=== PATIENT | female | born 1980 | race African-American/Black ===

== ENCOUNTER 2019-03-29 18:54 | Emergency (ER) | payer OTHER ==
[2019-03-29 19:21] VITALS: BP 127/79; PULSE 117; TEMP 98.5; BMI 20.7
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
[2019-03-29] MEDS ORDERED: DIPHTH,PERTUSS(ACELL),TET 0.5 ML DISP.SYRIN IM ONE (20:09)
[2019-03-29] MEDS ORDERED: DIPHTH,PERTUSS(ACELL),TET VAC 0.5 ML VIAL IM ONE (20:31)
== END 2019-03-29 20:34 | disposition home or self-care (01) ==
LOC: JERFT 18:54
PROC: 3E0234Z Introduction of Serum, Toxoid and Vaccine into Muscle, Percutaneous Approach (ICD-10-PCS; principal; 2019-03-29)
PROC: 0HQ1XZZ Repair Face Skin, External Approach (ICD-10-PCS; 2019-03-29)
DX: S01.81XA Laceration without foreign body of other part of head, initial encounter (principal); W20.8XXA Other cause of strike by thrown, projected or falling object, initial encounter; Y93.89 Activity, other specified; Y92.89 Other specified places as the place of occurrence of the external cause; Y99.8 Other external cause status
CPT/HCPCS: 12013; 90471; 99281-25

== ENCOUNTER 2020-06-14 11:48 | Emergency (ER) | payer OTHER ==
[2020-06-14 12:01] VITALS: BP 113/82; PULSE 88; TEMP 98.2; BMI 19.6
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
[2020-06-14] MEDS ORDERED: IBUPROFEN 400 MG TABLET (FP) PO ONE ×2 (13:08→13:09)
== END 2020-06-14 13:19 | disposition home or self-care (01) ==
LOC: JERFT 11:48
PROC: 2W3DX1Z Immobilization of Left Lower Arm using Splint (ICD-10-PCS; principal; 2020-06-14)
DX: S62.323A Displaced fracture of shaft of third metacarpal bone, left hand, initial encounter for closed fracture (principal)
CPT/HCPCS: 73130-TC-LT-FY; 99284-25

== ENCOUNTER 2020-07-23 12:14 | Inpatient (IN) | payer OTHER ==
--- OUTSIDE RECORDS SUMMARY | 2020-07-23 12:19 | XMS ---
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 32.0-37. <content [facility] corpuscular 0 styleCode="[place] hemoglobin ">Mean Corpus. Medical concentration Hgb Center [Mass/volume] by Concentration Automated count (MCHC) </content>33.2 G/DL<content styleCode="Ital ics"> (32.0-37.0 G/DL)</content> Erythrocyte mean 26.0-34. <content [facility] corpuscular 0 styleCode="[place] hemoglobin ">Mean Medical [Entitic mass] Corposcular Center by Automated Hemoglobin count </content>32.8 PG<content styleCode="Ital ics"> (26.0-34.0 PG)</content> Platelets 130-400 <content [facility] [#/volume] in styleCode="[place] Blood by ">Platelet Medical Automated count Count Center </content>294 KCUMM<content styleCode="Ital ics"> (130-400 KCUMM)</content > Erythrocyte 11.5-14. <content [facility] distribution 5 styleCode="[place] width [Ratio] by ">Red Cell Medical Automated count Distribution Center Width </content>12.4 %<content styleCode="Ital ics"> (11.5-14.5 %)</content> Erythrocyte mean 80.0-100 <content [facility] corpuscular .0 styleCode="[place] volume [Entitic ">Mean Medical volume] by Corpuscular Center Automated count Volume </content>98.5 FL<content styleCode="Ital ics"> (80.0-100.0 FL)</content> UNK 0 <content [facility] styleCode="[place] ">Nucleated Red Medical Blood Cell Center </content>0.0 /100<content styleCode="Ital ics"> (0 /100)</content> UNK 0.0 <content [facility] styleCode="[place] ">Nucleated Red Medical Blood Cell Center Count </content>0.00 KCUMM<content styleCode="Ital ics"> (0.0 KCUMM)</content > ID Date Data Source GFR(Creatinine).[id number] 06/14/2019 03:50:00 PM EDT [facility] 0-0400 Name Value Range Interpretation Code Description Data Pretty rce(s) Supporting Document(s ) UNK > 60 <content [facility] styleCode="[facility]"> Medical Cent er EGFR </content>75 GFR<content styleCode="Italic s"> (> 60 GFR)</content> ID Date Data Source [id number] 06/14/2019 03:50:00 PM EDT [facility] Name Value Range Interpretation Description Data Sup porting Code Source(s) Document(s ) Sodium 137-145 <content [facility] [Moles/volume] styleCode="[place] in Serum or d">Sodium Medical Plasma </content>143 Center MEQ/L<content styleCode="Triny lics"> (137-145 MEQ/L)</conten t> Chloride 98-107 <content [facility] [Moles/volume] styleCode="[place] in Serum or d">Chloride Medical Plasma </content>104 Center MEQ/L<content styleCode="Triny lics"> (98-107 MEQ/L)</conten t> Potassium 3.5-5.3 Below low normal <content [facility] [Moles/volume] styleCode="[place] in Serum or d">Potassium Medical Plasma </content>3.4 Center MEQ/L L<content styleCode="Triny lics"> (3.5-5.3 MEQ/L)</conten t> Carbon 22-30 <content [facility] dioxide, total styleCode="[place] [Moles/volume] d">Carbon Medical in Serum or Dioxide Center Plasma </content>26 MEQ/L<content styleCode="Triny lics"> (22-30 MEQ/L)</conten t> UNK 7-17 <content [facility] styleCode="[place] d">BUN Medical </content>11 Center MG/DL<content styleCode="Triny lics"> (7-17 MG/DL)</conten t> Calcium 8.4-10.2 <content [facility] [Mass/volume] styleCode="[place] in Serum or d">Calcium Medical Plasma </content>9.4 Center MG/DL<content styleCode="Triny lics"> (8.4-10.2 MG/DL)</conten t> Glucose 74-106 Above high normal <content [facility] [Mass/volume] styleCode="[place] in Serum or d">Glucose Medical Plasma </content>117 Center MG/DL H<content styleCode="Triny lics"> (74-106 MG/DL)</conten t> Creatinine 0.5-1.3 <content [facility] [Mass/volume] styleCode="[place] in Serum or d">Creatinine Medical Plasma </content>0.9 Center MG/DL<content styleCode="Triny lics"> (0.5-1.3 MG/DL)</conten t> UNK > 60 <content [facility] styleCode="[place] d">EGFR Medical </content>75 Center GFR<content styleCode="Triny lics"> (> 60 GFR)</content> Procedure Social History Code Duration Value Status Description Data Source(s ) Smoking 04/05/2020 01:57:00 Daily Smoker completed Daily Smoker S [facility] EDT Center Smoking 04/05/2020 01:49:00 Daily Smoker completed Daily Smoker S [facility] EDT Center Smoking 04/05/2020 12:51:00 Daily Smoker completed Daily Smoker S [facility] EDT Center Smoking 07/12/2019 09:54:00 Daily Smoker completed Daily Smoker S [facility] EDT Center Smoking 07/12/2019 09:23:00 Daily Smoker completed Daily Smoker S [facility] EDT Center Smoking 07/12/2019 09:18:00 Daily Smoker completed Daily Smoker S [facility] EDT Center Smoking 07/11/2019 07:40:00 Daily Smoker completed Daily Smoker S [facility] EDT Center Smoking 06/28/2019 11:07:00 Daily Smoker completed Daily Smoker S [facility] EDT Center Smoking 06/28/2019 11:00:00 Daily Smoker completed Daily Smoker S [facility] EDT Center Smoking 06/14/2019 03:52:00 Daily Smoker completed Daily Smoker S [facility] EDT Center Smoking 06/14/2019 03:26:00 Daily Smoker completed Daily Smoker S [facility] EDT Center Vital Signs ID Date Data Source UNK Name Value Range Interpretation Code Description Data Source(s) Body temperature 36.480258 36.374042 [facility] Respiratory rate 17 /min 17 /min [facility] Oxygen saturation 98 % 98 % [facility] by Pulse oximetry Heart rate 74 /min 74 /min [facility] Diastolic blood 81 mm[Hg] 81 mm[Hg] [facility] Systolic blood 153 mm[Hg] 153 mm[Hg] [facility] pressure [facility] Body weight 61.098711 kg 61.199663 kg [facility] Body temperature 36.237677 36.443808 [facility] Respiratory rate 18 /min 18 /min [facility] Oxygen saturation 97 % 97 % [facility] by Pulse oximetry Heart rate 87 /min 87 /min [facility] Body height 175.949156 175.687705 cm [facility] Diastolic blood 83 mm[Hg] 83 mm[Hg] [facility] pressure Medical Center Systolic blood 144 mm[Hg] 144 mm[Hg] [facility] Body mass index 20.0 kg/m2 20.0 kg/m2 [facility] (BMI) [Ratio] [facility] Body weight 61.263437 kg 61.449906 kg [facility] Measured [facility] Body temperature 36.865148 36.215012 [facility] Respiratory rate 17 /min 17 /min [facility] Oxygen saturation 98 % 98 % [facility] Arterial blood Medical Center by Pulse oximetry Heart rate 77 /min 77 /min [facility] Body height 172.375735 172.061173 cm [facility] Diastolic blood 56 mm[Hg] 56 mm[Hg] [facility] Systolic blood 111 mm[Hg] 111 mm[Hg] [facility] Body mass index 20.6 kg/m2 20.6 kg/m2 [facility] (BMI) [Ratio] [facility] Body temperature 37.963359 37.457853 [facility] Respiratory rate 18 /min 18 /min [facility] Oxygen saturation 98 % 98 % [facility] Arterial blood Medical Center by Pulse oximetry Heart rate 78 /min 78 /min [facility] Diastolic blood 78 mm[Hg] 78 mm[Hg] [facility] pressure Medical Center Systolic blood 132 mm[Hg] 132 mm[Hg] [facility] Medical Center Body weight 65.151593 kg 65.883466 kg [facility] Measured Medical Center Body temperature 36.911077 36.307964 [facility] Respiratory rate 17 /min 17 /min [facility] Oxygen saturation 96 % 96 % [facility] Arterial blood Medical Center by Pulse oximetry Heart rate 97 /min 97 /min [facility] Diastolic blood 74 mm[Hg] 74 mm[Hg] [facility] Systolic blood 123 mm[Hg] 123 mm[Hg] [facility] Medical Center Body weight 62.088172 kg 62.336434 kg [facility] Body temperature 36.360599 36.142109 [facility] Respiratory rate 17 /min 17 /min [facility] Oxygen saturation 97 % 97 % [facility] Marielena garcia in Arterial blood Medical Center by Pulse oximetry Heart rate 95 /min 95 /min [facility] Body height 172.457831 172.448894 cm [facility] cm Medical Center Diastolic blood 82 mm[Hg] 82 mm[Hg] [facility] pressure Medical Center Systolic blood 124 mm[Hg] 124 mm[Hg] [facility] pressure Medical Center Body mass index 20.9 kg/m2 20.9 kg/m2 [facility] (BMI) [Ratio] [facility]
--- NOTE | 2020-07-23 16:27 | BHS.RME ---
Substance Use & Tx History - Substance Use History Alcohol Substance amount: 1to 2 pint of vodka Frequency of use: Daily Substance route: Oral Date of Last Use: 07/23/20 Marijuana/Hashish Substance amount: 2 pulls Frequency of use: Once a month Substance route: Smoking Date of Last Use: 07/22/20 - Last Treatment Date of last treatment: never been in detox before Physical/Psych/Mental Status - Behavior Eye Contact: Normal - Cooperativeness Cooperativeness: Cooperative - Thinking Thought Processes: Logical Thought content: Future oriented - Physical Health Problems Is patient presently having any pain?: No Does patient presently have any injuries (include location): No Does patient currently have a fever: No Is patient : No CIWA Nausea/Vomitin Muscle Tremors: 3 Anxiety: 2 Agitation: 3 Paroxysmal Sweats: No Perspiration Orientation: 0-Oriented Tacttile Disturbances: 1-Very Mild Itch/Numbness Auditory Disturbances: 0-None Visual Disturbances: 0-None Headache: 2-Mild CIWA-Ar Total Score: 13
--- NOTE | 2020-07-23 16:37 | HP ---
CIWA Score Nausea/Vomitin Muscle Tremors: 3 Anxiety: 2 Agitation: 3 Paroxysmal Sweats: No Perspiration Orientation: 0-Oriented Tacttile Disturbances: 1-Very Mild Itch/Numbness Auditory Disturbances: 0-None Visual Disturbances: 0-None Headache: 2-Mild CIWA-Ar Total Score: 13 - Admission Criteria OASAS Guidelines: Admission for Medically Managed Detox: Requires at least one of the followin. CIWA greater than 12 2. Seizures within the past 24 hours 3. Delirium tremens within the past 24 hours 4. Hallucinations within the past 24 hours 5. Acute intervention needed for co occurring medical disorder 6. Acute intervention needed for co occurring psychiatric disorder 7. Severe withdrawal that cannot be handled at a lower level of care (continued vomiting, continued diarrhea, abnormal vital signs) requiring intravenous medication and/or fluids 8. Admitting History and Physical - Admission Chief Complaint: i need help to stop drinking alcohol History of Present Illness: this 40 years old female with alcohol dependence seeking help,never been inn detox before History Source: Patient Limitations to Obtaining History: No Limitations - Past Medical History ...LMP: 06/02/20 ...: No - Smoking History Smoking history: Current every day smoker Have you smoked in the past 12 months: Yes Aproximately how many cigarettes per day: 4 - Alcohol/Substance Use Hx Alcohol Use: Yes Date of Last Use: 07/23/20 - Social History Usual Living Arrangement: Yes: With Parent Do you think of yourself as: Straight/Heterosexual ADL: Support Services Occupation: unemployed History of Recent Travel: No 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,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,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 Admission ROS S - HPI Chief Complaint: i need help to stop drinking alcohol Allergies/Adverse Reactions: Allergies Allergy/AdvReac Type Severity Reaction Status Date / Time No Known Allergies Allergy Verified 07/24/20 00:06 History of Present Illness: this 40 years old female with alcohol dependence,seeking detox,never been in detox before 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,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 history of fx left 3rd metacarpal bone treated at [facility] with splint 2 weeks ago,was removed by the orthopedist never have sobriety history of frequency on urination plan to out patient program after detox Exam Limitations: No Limitations - Ebola screening Have you traveled outside of the country in the last 21 days: No Have you been sick,other than usual withdrawal symptoms: No Do you have a fever: No - Review of Systems Constitutional: Loss of Appetite, Malaise, Night Sweats, Changes in sleep, Weakness EENT: reports: Nose Congestion Respiratory: reports: No Symptoms reported Cardiac: reports: No Symptoms Reported GI: reports: Nausea, Poor Appetite, Abdominal cramping : reports: Dysuria Musculoskeletal: reports: Back Pain, Muscle Pain Integumentary: reports: Dryness Neuro: reports: Tremors Endocrine: reports: No Symptoms Reported Hematology: reports: No Symptoms Reported Psychiatric: reports: No Sypmtoms Reported, Judgement Intact, Mood/Affect Appropiate, Orientated x3, Anxious Other Systems: Reviewed and Negative Patient History - Patient Medical History Hx Anemia: No Hx Asthma: No Hx Chronic Obstructive Pulmonary Disease (COPD): No Hx Cancer: No Hx Cardiac Disorders: No Hx Congestive Heart Failure: No Hx Hypertension: No Hx Hypercholesterolemia: No Hx Pacemaker: No HX Cerebrovascular Accident: No Hx Seizures: No Hx Dementia: No Hx Diabetes: No Hx Gastrointestinal Disorders: No Hx Liver Disease: No Hx Genitourinary Disorders: No Hx Sexually Transmitted Disorders: No Hx Renal Disease (ESRD): No Hx Thyroid Disease: No Hx Human Immunodeficiency Virus (HIV): No (11/02 negative) Hx Hepatitis C: No Hx Depression: No Hx Suicide Attempt: No Hx Bipolar Disorder: No Hx Schizophrenia: No Other Medical History: no suicidal,no homicidal,fx of third metacarpal treated at [facility] 2 wks - Patient Surgical History Past Surgical History: No - PPD History Previous Implant?: Yes Documented Results: Negative w/o proof Implanted On Prior R Admission?: No PPD to be Administered?: Yes - Reproductive History Patient is a Female of Child Bearing Age (11 -55 yrs old): Yes Last Menstrual Period: 06/02/20 Patient : No - Smoking Cessation Smoking history: Current every day smoker Have you smoked in the past 12 months: Yes Aproximately how many cigarettes per day: 4 Cigars Per Day: 0 Hx Chewing Tobacco Use: No Initiated information on smoking cessation: Yes 'Breaking Loose' booklet given: 07/23/20 - Substance & Tx. History Hx Alcohol Use: Yes Hx Substance Use: Yes Substance Use Type: Alcohol, Marijuana Hx Substance Use Treatment: No - Substances abused Alcohol Other (specify): 1 to 2 pints of vodka Substance route: Oral Frequency: Daily Amount used: 1 to 2 pintsof vodka Age of first use: 10 Date of last use: 07/23/20 Marijuana/Hashish Substance route: Smoking Frequency: 1-3 times last 30 days Amount used: 2 puffs Age of first use: 18 Date of last use: 07/22/20 Admission Physical Exam [facility] - Vital Signs Vital Signs: bp 117/89 p82 r18 t97.6 lázaro 0.195 pulse ox 98 - Physical General Appearance: Yes: Moderate Distress, Tremorous, Irritable, Sweating, Anxious HEENTM: Yes: Normal ENT Inspection, GRADY, Pharynx Normal Respiratory: Yes: Within Normal Limits, Lungs Clear, Normal Breath Sounds Neck: Yes: Within Normal Limits, Supple, Trachea in good position Breast: Yes: Breast Exam Deferred Cardiology: Yes: Within Normal Limits, Regular Rhythm, Regular Rate, S1, S2 Abdominal: Yes: Within Normal Limits, Normal Bowel Sounds, Non Tender, Flat, Soft Genitourinary: Yes: Within Normal Limits Back: Yes: Within Normal Limits Musculoskeletal: Yes: Back pain, Muscle Pain Extremities: Yes: Within Normal Limits, Normal Range of Motion, Tremors 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 NML intact, Alert, Motor Strength 5/5 Integumentary: Yes: Dry Lymphatic: Yes: Within Normal Limits - Diagnostic (1) Alcohol dependence with uncomplicated withdrawal Current Visit: Yes Status: Acute (2) Alcohol dependence with uncomplicated intoxication Current Visit: Yes Status: Acute (3) Syncope Current Visit: Yes Status: Acute (4) Nicotine dependence Current Visit: Yes Status: Acute (5) Fracture of metacarpal of left hand, closed Current Visit: No Status: Acute Qualifiers: Encounter type: initial encounter Metacarpal bone: third Metacarpal location: shaft Fracture alignment: displaced Qualified Code(s): S62.323A - Displaced fracture of shaft of third metacarpal bone, left hand, initial encounter for closed fracture Cleared for Admission [facility] - Detox or Rehab [facility] Level of Care: Medically Managed Detox Regimen/Protocol: Librium Inpatient Rehab Admission - Rehab Decision to Admit Inpatient rehab admission?: No
[2020-07-23 16:42] VITALS: BMI 19.1
--- OUTSIDE RECORDS SUMMARY | 2020-07-23 16:56 | XMS ---
:1980 Author Organization [facility] Care Team Providers Name Role Phone [...] is protected by Article 27-F of the [facility] Public Health law. If you continue you may haveaccess to information: Regarding HIV / AIDS; Provided by facilities licensed or operated by the [facility] Office of Mental Health; or Provided by the [facility] Office for People With Developmental Disabilities. If such information is present, then the following [facility] mandated warning applies: This information has [...] law may result in a fine or long term sentence or both. A general authorization for the release of medical or other information is NOT sufficient authorization for further disclosure. Encounters Encounter Providers Location Date Indications Data Source(s ) Emergency Attender: JULIA ED H 04/05/2020 [place] STAFF 12:47:00 PM EDT Medical C enter PHYSICIANAttender: - 04/05/2020 STAFF ED STAFF 08:39:00 PM EDT PHYSICIANAdmitter: JULIA ED STAFF PHYSICIAN Patient discharged. Emergency H 07/12/2019 08:57:00 AM EDT - [address] [place] [address] 12:26:00 PM EDT Patient discharged. Emergency H 07/11/2019 08:37:00 PM EDT - [address] [place] [address] 10:01:00 PM EDT Patient discharged. Emergency H 06/28/2019 10:38:00 PM EDT - [address] [place] [address] 12:53:00 AM EDT Patient discharged. Emergency H 06/14/2019 03:24:00 PM EDT - [address] [place] [address] 06:24:00 PM EDT Patient discharged. Immunizations Vaccine Date Status Description Data Source(s) Note that this vaccine 06/28/2019 completed [facility] name has changed. See 11:55:00 PM EDT Ce nter also Td (adult). It is not adsorbed. Insurance Providers Payer name Policy type Policy ID Covered Covered libertarian's Policy P josse / Coverage libertarian ID relationship to [facility] type [facility] [employer] [id number] SP [id number] P MEDICAID [id number] SP [id number] SELF PAY SP INSURANCE [employer] [id number] SP [id number] Q HMO ALETHA O [id number] [employer] Problems, Conditions, and Diagnoses Code Display [...] ical carried out due to SEEN BY [facility] EDT Center patient leaving [place] prior to [...] EDT Center Results ID Date Data Source Urinalysis.[id number] 04/05/2020 01:50:00 PM EDT [facility] saritha [facility] 0 Name Value Range Interpretation [...] by Test d">Urine Medical strip Specific Center [place] </content>>= 1.030 H<content styleCode="Triny lics"> (1.015-1.025 )</content> [...] Hill d">Urine pH Medical </content>6.0 Center <content styleCode="Rtiny lics"> (4.5-8.0 )</content> Urobilinogen 0.2-1.0 <content Saint [Units/volume] styleCode="Rossana Alejandre in Urine by d">Urine Medical [...] Data Source Liver 04/05/2020 01:50:00 PM EDT [facility] Profile.[id number] Name Value Range Interpretation Description Data Sup [...] (0.2-1.3 MG/DL)</content> UNK 0.0-0.3 <content Saint styleCode="Bold"> [facility] Bilirubin, Direct Medical </content>< 0.2 Center MG/DL<content styleCode="Italic s"> (0.0-0.3 MG/DL)</content> Albumin 3.5-5.0 <content Saint [Mass/volume] in styleCode="Bold"> Ab hs Serum or Plasma Albumin Medical </content>4.3 Center G/DL<content styleCode="Italic s"> (3.5-5.0 G/DL)</content> ID Date Data Source HematologyRou.[id number] 04/05/2020 01:50:00 PM EDT Emmanuel nt [facility] 0400 Name Value Range Interpretation Description Data Sup porting Code Source(s) Document(s ) Hemoglobin 12.3-16. Below low normal <content Saint [Mass/volume] in 0 styleCode="Bold [facility] Blood ">Hemoglobin Medical </content>10.9 Center G/DL L<content [...] low normal <content Saint [Volume 0 styleCode="Bold Hlil Fraction] of ">Hematocrit Medical Blood by </content>31.4 [...] (NONE SEEN )</content> ID Date Data Source GFR(Creatinine).[id number] 04/05/2020 01:50:00 PM EDT [facility] 0-0400 Name Value Range Interpretation Code Description Data Pretty rce(s) Supporting Document(s ) UNK > 60 <content [facility] styleCode="Bold"> Medical Cent er EGFR </content>100 GFR<content styleCode="Italic s"> (> 60 GFR)</content> ID Date Data Source Coagulation 04/05/2020 01:50:00 PM [facility] Center Rout.[id number] EDT Name Value Range Interpretation Description Data [...] cs"> (25.1-36.5 SEC)</content> ID Date Data Source CHMROUTINECCDA.[id number] 04/05/2020 01:50:00 PM EDT [facility] -0400 Name Value Range Interpretation Description Data [...] not available)<br/ > ID Date Data Source [facility].[id number] 04/05/2020 01:50:00 PM EDT [facility] Name Value Range Interpretation Description Data Sup porting Code Source(s) Document(s ) Sodium 137-145 <content Saint [Moles/volume] in styleCode="Bold"> [facility] Serum or Plasma Sodium Medical </content>137 Center MEQ/L<content styleCode="Italic s"> (137-145 MEQ/L)</content> Carbon dioxide, 22-30 <content Saint total styleCode="Bold"> [facility] [Moles/volume] in Carbon Dioxide Medical Serum or Plasma </content>26 Center MEQ/L<content styleCode="Italic s"> (22-30 MEQ/L)</content> Chloride 98-107 <content Saint [Moles/volume] in styleCode="Bold"> [facility] Serum or Plasma Chloride Medical </content>100 Center MEQ/L<content styleCode="Italic s"> (98-107 MEQ/L)</content> Potassium 3.5-5.3 Below low <content Saint [Moles/volume] in normal styleCode="Bold"> [facility] Serum or Plasma Potassium Medical </content>3.4 Center [...] s"> (3.5-5.0 G/DL)</content> ID Date Data Source Urinalysis.[id number] 06/14/2019 03:50:00 PM EDT [facility] 0 Name Value Range Interpretation Description [...] by Test d">Urine Medical strip Specific Center [place] </content>1.02 0 <content styleCode="Triny lics"> (1.015-1.025 )</content> [...] lics"> (0-3 HPF)</content> ID Date Data Source HematologyRou.[id number] 06/14/2019 03:50:00 PM EDT [facility] 0400 Name Value Range Interpretation Description [...] (0.0 KCUMM)</content > ID Date Data Source GFR(Creatinine).[id number] 06/14/2019 03:50:00 PM EDT [facility] 0-0400 Name Value Range Interpretation Code Description Data Pretty rce(s) Supporting Document(s ) UNK > 60 <content [facility] styleCode="Bold"> Medical Cent er EGFR </content>75 GFR<content styleCode="Italic s"> (> 60 GFR)</content> ID Date Data Source [id number] 06/14/2019 03:50:00 PM EDT [facility] Name Value Range Interpretation Description [...] 01:57:00 Daily Smoker completed Daily Smoker S [facility] EDT Center Smoking 04/05/2020 01:49:00 Daily Smoker completed Daily Smoker S [facility] EDT Center Smoking 04/05/2020 12:51:00 Daily Smoker completed Daily Smoker S [facility] EDT Center Smoking 07/12/2019 09:54:00 Daily Smoker completed Daily Smoker S [facility] EDT Center Smoking 07/12/2019 09:23:00 Daily Smoker completed Daily Smoker S [facility] EDT Center Smoking 07/12/2019 09:18:00 Daily Smoker completed Daily Smoker S [facility] EDT Center Smoking 07/11/2019 07:40:00 Daily Smoker completed Daily Smoker S [facility] EDT Center Smoking 06/28/2019 11:07:00 Daily Smoker completed Daily Smoker S [facility] EDT Center Smoking 06/28/2019 11:00:00 Daily Smoker completed Daily Smoker S [facility] EDT Center Smoking 06/14/2019 03:52:00 Daily Smoker completed Daily Smoker S [facility] EDT Center Smoking 06/14/2019 03:26:00 Daily Smoker completed Daily Smoker S [facility] EDT Center Vital Signs ID Date Data Source UNK Name Value Range Interpretation Code Description Data Source(s) Body temperature 36.343595 36.038156 [facility] Respiratory rate 17 /min 17 /min [facility] Oxygen saturation 98 % 98 % [facility] by Pulse oximetry Heart rate 74 /min 74 /min [facility] Diastolic blood 81 mm[Hg] 81 mm[Hg] [facility] Systolic blood 153 mm[Hg] 153 mm[Hg] [facility] pressure [facility] Body weight 61.919649 kg 61.958690 kg [facility] Body temperature 36.992032 36.154029 [facility] Respiratory rate 18 /min 18 /min [facility] Oxygen saturation 97 % 97 % [facility] by Pulse oximetry Heart rate 87 /min 87 /min [facility] Body height 175.357950 175.506183 cm [facility] Diastolic blood 83 mm[Hg] 83 mm[Hg] [facility] pressure [facility] Center Systolic blood 144 mm[Hg] 144 mm[Hg] [facility] Body mass index 20.0 kg/m2 20.0 kg/m2 [facility] (BMI) [Ratio] [facility] Body weight 61.624848 kg 61.532889 kg [facility] Body temperature 36.883693 36.752204 [facility] Respiratory rate 17 /min 17 /min [facility] Oxygen saturation 98 % 98 % [facility] Arterial blood Medical Center by Pulse oximetry Heart rate 77 /min 77 /min [facility] Body height 172.756199 172.836480 cm [facility] Diastolic blood 56 mm[Hg] 56 mm[Hg] [facility] Systolic blood 111 mm[Hg] 111 mm[Hg] [facility] Body mass index 20.6 kg/m2 20.6 kg/m2 [facility] ([facility] [Ratio[facility] Body temperature 37.662890 37.016014 [facility] Respiratory rate 18 /min 18 /min [facility] Oxygen saturation 98 % 98 % [facility] Arter[facility] blood Medical Center by Pulse oximetry Heart rate 78 /min 78 /min [facility] Diastolic blood 78 mm[Hg] 78 mm[Hg] [facility] pressure Medical Center Systolic blood 132 mm[Hg] 132 mm[Hg] [facility] Medical Center Body weight 65.119059 kg 65.558537 kg [facility] Body temperature 36.577361 36.256659 [facility] Respiratory rate 17 /min 17 /min [facility] Oxygen saturation 96 % 96 % [facility] Arterial blood Medical Center by Pulse oximetry Heart rate 97 /min 97 /min [facility] Diastolic blood 74 mm[Hg] 74 mm[Hg] [facility] Center Systolic blood 123 mm[Hg] 123 mm[Hg] [facility] Body weight 62.367171 kg 62.516081 kg [facility] Body temperature 36.322572 36.373040 [facility] Respiratory rate 17 /min 17 /min [facility] Oxygen saturation 97 % 97 % [facility] Marielena garcia in Arterial blood Medical Center by Pulse oximetry Heart rate 95 /min 95 /min [facility] Body height 172.622509 172.425432 cm [facility] cm Medical Center Diastolic blood 82 mm[Hg] 82 mm[Hg] [facility] pressure Medical Center Systolic blood 124 mm[Hg] 124 mm[Hg] [facility] pressure Medical Center Body mass index 20.9 kg/m2 20.9 kg/m2 [facility] (BMI) [Ratio] [facility]
[2020-07-23] MEDS ORDERED: MENTHOL/PHENOL 1 EACH UD MM PRN (16:58)
[2020-07-23] MEDS ORDERED: NICOTINE POLACRILEX 2 MG GUM BUC PRN (16:58)
[2020-07-23] MEDS ORDERED: ACETAMINOPHEN 325 MG TABLET (FP) PO PRN ×2 (16:58)
[2020-07-23] MEDS ORDERED: BISMUTH SUBSALICYLATE 524 MG/30 ML UD PO PRN (16:58)
[2020-07-23] MEDS ORDERED: MAG HYDROX/AL HYDROX/SIMETH 30 ML UNIT-DOSE CUP PO PRN (16:58)
[2020-07-23] MEDS ORDERED: ONDANSETRON *ODT* 4 MG TABLET SL PRN (16:58)
[2020-07-23] MEDS ORDERED: chlordiazePOXIDE HCL 25 MG CAPSULE PO PRN (16:58)
[2020-07-23] MEDS ORDERED: METHOCARBAMOL 500 MG TABLET PO PRN (16:58)
[2020-07-23] MEDS ORDERED: MAGNESIUM HYDROX 2400MG/30ML ORAL SUSPENSION 30 ML CUP PO PRN (16:58)
[2020-07-23] MEDS ORDERED: IBUPROFEN 400 MG TABLET (FP) PO PRN (16:58)
[2020-07-23] MEDS ORDERED: MAGNESIUM CITRATE 300 ML BOTTLE PO PRN (16:58)
[2020-07-23] MEDS: hydrOXYzine PAMOATE 25 MG CAPSULE (FP) PO SCH ×2 (18:15→22:18)
[2020-07-23] MEDS ORDERED: MELATONIN 5 MG TABLETS PO SCH (22:00)
[2020-07-23] MEDS ORDERED: THIAMINE HCL 100 MG TABLET (FP) PO SCH (22:00)
[2020-07-23] MEDS: chlordiazePOXIDE HCL 25 MG CAPSULE PO SCH (22:18)
[2020-07-24] MEDS: hydrOXYzine PAMOATE 25 MG CAPSULE (FP) PO SCH ×4 (05:48→19:26)
[2020-07-24] MEDS: chlordiazePOXIDE HCL 25 MG CAPSULE PO SCH ×3 (05:48→16:54)
[2020-07-24] MEDS ORDERED: PRENATAL VITAMINS W/ FOLIC ACID TABLET (FP) PO SCH (10:00)
[2020-07-24] MEDS ORDERED: NICOTINE 7 MG/24 HOURS TOPICAL PATCH TD SCH (10:00)
[2020-07-24 10:14] LABS: HEMATOCRIT 35.1 % (32.4-45.2); HEMOGLOBIN 11.6 GM/dL (10.7-15.3); MCH 34.7 pg (25.7-33.7); MCHC 33.1 g/dl (32.0-36.0); MEAN PLT VOLUME 10.7 fl (7.5-11.1); PLATELET COUNT 91 K/MM3 (134-434); RBC 3.34 M/mm3 (3.60-5.2); RDW 16.2 % (11.6-15.6)
[2020-07-24 10:29] LABS: ALBUMIN 3.2 g/dl (3.4-5.0); BILIRUBIN,TOTAL 2.4 mg/dL (0.2-1); BLOOD UREA NITROGEN 3.8 mg/dL (7-18); CALCIUM 8.4 mg/dL (8.5-10.1); TOT PROT 6.7 g/dl (6.4-8.2)
[2020-07-24 10:56] LABS: SICKLE CELL SCREEN NEGATIVE (NEGATIVE)
[2020-07-24 11:02] LABS: POTASSIUM 2.9 mmol/L (3.5-5.1)
--- NOTE | 2020-07-24 11:34 | PN ---
[facility] CIWA - CIWA Score Nausea/Vomitin-No Nausea/No Vomiting Muscle Tremors: 3 Anxiety: 3 Agitation: 2 Paroxysmal Sweats: 4-Forehead w/Sweat Beads Orientation: 0-Oriented Tacttile Disturbances: 0-None Auditory Disturbances: 0-None Visual Disturbances: 0-None Headache: 0-None Present CIWA-Ar Total Score: 12 S Progress Note (SOAP) Subjective: complaints of sweats,tremors, generalized weakness and anxiety. Objective: 07/24/20 11:29 Vital Signs 07/24/20 07/24/20 05:35 08:48 Temperature 98 F 97.5 F L Pulse Rate 99 H 94 H Respiratory 16 18 Rate Blood Pressure 139/91 147/80 O2 Sat by Pulse 100 100 Oximetry (%) Laboratory Last Values WBC 3.0 K/mm3 (4.0-10.0) L 07/24/20 07:35 RBC 3.34 M/mm3 (3.60-5.2) L 07/24/20 07:35 Hgb 11.6 GM/dL (10.7-15.3) 07/24/20 07:35 Hct 35.1 % (32.4-45.2) 07/24/20 07:35 MCV 105.0 fl (80-96) H 07/24/20 07:35 MCH 34.7 pg (25.7-33.7) H 07/24/20 07:35 MCHC 33.1 g/dl (32.0-36.0) 07/24/20 07:35 RDW 16.2 % (11.6-15.6) H 07/24/20 07:35 Plt Count 91 K/MM3 (134-434) L 07/24/20 07:35 MPV 10.7 fl (7.5-11.1) 07/24/20 07:35 Sickle Cell Screen Negative (NEGATIVE) 07/24/20 07:35 Sodium 135 mmol/L (136-145) L 07/24/20 07:35 Potassium 2.9 mmol/L (3.5-5.1) L* 07/24/20 07:35 Chloride 95 mmol/L (98-107) L 07/24/20 07:35 Carbon Dioxide 29 mmol/L (21-32) 07/24/20 07:35 Anion Gap 11 MMOL/L (8-16) 07/24/20 07:35 BUN 3.8 mg/dL (7-18) L 07/24/20 07:35 Creatinine 1.0 mg/dL (0.55-1.3) 07/24/20 07:35 Est GFR (CKD-EPI)AfAm 82.76 07/24/20 07:35 Est GFR (CKD-EPI)NonAf 71.41 07/24/20 07:35 Random Glucose 115 mg/dL (74-106) H 07/24/20 07:35 Calcium 8.4 mg/dL (8.5-10.1) L 07/24/20 07:35 Total Bilirubin 2.4 mg/dL (0.2-1) H 07/24/20 07:35 AST 1389 U/L (15-37) H 07/24/20 07:35 ALT 189 U/L (13-61) H 07/24/20 07:35 Alkaline Phosphatase 269 U/L (45-117) H 07/24/20 07:35 Total Protein 6.7 g/dl (6.4-8.2) 07/24/20 07:35 Albumin 3.2 g/dl (3.4-5.0) L 07/24/20 07:35 Syphilis Serology Non-reactive (NONREACTIVE) 07/24/20 07:35 Labs noted with hypokalemia and elevated AST/ALT. Assessment: 07/24/20 11:33 Alert and oriented x 3, in no acute respiratory distress. Full ROM, ambulating in unit without assistance. Withdrawal symptoms. Hypokalemia. Elevated AST/ALT. Plan: Continue detox protocol. Transfer patient to [facility] for hypokalemia and elevated AST/ALT, report wwas given to Dr. Samson.
[2020-07-24 21:29] VITALS: BP 102/75; PULSE 51; TEMP 98.2
--- NOTE | 2020-07-24 21:49 | EKG ---
Test Reason : Blood Pressure : / mmHG Vent. Rate : 080 BPM Atrial Rate : 080 BPM P-R Int : 136 ms QRS Dur : 104 ms QT Int : 470 ms P-R-T Axes : 045 065 057 degrees QTc Int : 542 ms NORMAL SINUS RHYTHM WITH SINUS ARRHYTHMIA NONSPECIFIC ST ABNORMALITY PROLONGED QT ABNORMAL ECG NO PREVIOUS ECGS AVAILABLE Confirmed by Cristina Barbosa ([id number]) on 07/24/2020 9:49:13 PM Referred By: Confirmed By:Cristina Barbosa
[2020-07-25] MEDS ORDERED: chlordiazePOXIDE HCL 25 MG CAPSULE PO SCH (05:00)
[2020-07-26] MEDS ORDERED: chlordiazePOXIDE HCL 10 MG CAPSULE PO PRN
[2020-07-26] MEDS ORDERED: chlordiazePOXIDE HCL 10 MG CAPSULE PO SCH (05:00)
[2020-07-27] MEDS ORDERED: chlordiazePOXIDE HCL 10 MG CAPSULE PO SCH (05:00)
[2020-07-28] MEDS ORDERED: chlordiazePOXIDE HCL 10 MG CAPSULE PO ONE (05:00)
== END 2020-07-24 21:38 | disposition short-term general hospital (02) | DRG 775 ==
LOC: YASAS 12:14 → Y6N 16:51
PROVIDERS: ADMIT Allergy & Immunology; ATTEND Internal Medicine
PROC: HZ2ZZZZ Detoxification Services for Substance Abuse Treatment (ICD-10-PCS; principal; 2020-07-23)
DX: F10.230 Alcohol dependence with withdrawal, uncomplicated (principal); F10.220 Alcohol dependence with intoxication, uncomplicated; F12.10 Cannabis abuse, uncomplicated; F17.210 Nicotine dependence, cigarettes, uncomplicated; E87.6 Hypokalemia; R74.01 Elevation of levels of liver transaminase levels; R74.8 Abnormal levels of other serum enzymes; S62.323D Displaced fracture of shaft of third metacarpal bone, left hand, subsequent encounter for fracture with routine healing; X58.XXXD Exposure to other specified factors, subsequent encounter
CPT/HCPCS: 36415; 80053; 85027; 85660; 86780; 87389; 93005; 93010; C9803; Q0162; U0003

== ENCOUNTER 2020-07-24 12:25 | Inpatient (IN) | payer OTHER ==
--- OUTSIDE RECORDS SUMMARY | 2020-07-24 12:44 | XMS ---
:1980 Author Organization [facility] Care Team Providers Name Role Phone [...] is protected by Article 27-F of the [facility] Public Health law. If you continue you may haveaccess to information: Regarding HIV / AIDS; Provided by facilities licensed or operated by the [facility] Office of Mental Health; or Provided by the [facility] Office for People With Developmental Disabilities. If such information is present, then the following [facility] mandated warning applies: This information has been [...] law may result in a fine or skilled nursing sentence or both. A general authorization for the release of medical or other information is NOT sufficient authorization for further disclosure. Encounters Encounter Providers Location Date Indications Data Source(s ) Emergency Attender: JULIA ED H 04/05/2020 [facility] STAFF 12:47:00 PM EDT Medical C enter PHYSICIANAttender: - 04/05/2020 [facility] ED STAFF 08:39:00 PM EDT PHYSICIANAdmitter: JULIA ED STAFF PHYSICIAN Patient discharged. Emergency H 07/12/2019 08:57:00 AM EDT - [address] [place] [address] 12:26:00 PM EDT Patient discharged. Emergency H 07/11/2019 08:37:00 PM EDT - [address] [place] [address] 10:01:00 PM EDT Patient discharged. Emergency H 06/28/2019 10:38:00 PM EDT - [address] [place] [address] 12:53:00 AM EDT Patient discharged. Emergency H 06/14/2019 03:24:00 PM EDT - [address] [place] [address] 06:24:00 PM EDT Patient discharged. Immunizations Vaccine Date Status Description Data Source(s) Note that this vaccine 06/28/2019 completed [facility] name has changed. See 11:55:00 PM EDT Ce nter also Td (adult). It is not adsorbed. Insurance Providers Payer name Policy type Policy ID Covered Covered alliance party's Policy P josse / Coverage alliance party ID relationship to [facility] ormation type montes [employer] [id number] SP [id number] P MEDICAID [id number] SP [id number] SELF PAY SP INSURANCE [employer] [id number] SP [id number] Q HMO ALETHA O [id number] [employer] Problems, Conditions, and Diagnoses Code Display [...] ical carried out due to SEEN BY [facility] EDT Center patient leaving [place] prior to [...] EDT Center Results ID Date Data Source Urinalysis.[id number] 04/05/2020 01:50:00 PM EDT [facility] saritha [facility] 0 Name Value Range [...] by Test d">Urine Medical strip Specific Center [place] </content>>= 1.030 H<content styleCode="Triny lics"> (1.015-1.025 )</content> [...] Data Source Liver 04/05/2020 01:50:00 PM EDT [facility] Profile.[id number] Name Value Range Interpretation Description Data Sup [...] (0.2-1.3 MG/DL)</content> UNK 0.0-0.3 <content Saint styleCode="Bold"> [facility] Bilirubin, Direct Medical </content>< 0.2 Center MG/DL<content styleCode="Italic s"> (0.0-0.3 MG/DL)</content> Albumin 3.5-5.0 <content Saint [Mass/volume] in styleCode="Bold"> Ab hs Serum or Plasma Albumin Medical </content>4.3 Center G/DL<content styleCode="Italic s"> (3.5-5.0 G/DL)</content> ID Date Data Source HematologyRou.[id number] 04/05/2020 01:50:00 PM EDT [facility] 0400 Name Value Range Interpretation Description Data Sup porting Code Source(s) Document(s ) Hemoglobin 12.3-16. Below low normal <content Saint [Mass/volume] in 0 styleCode="Bold [facility] Blood ">Hemoglobin Medical </content>10.9 Center G/DL [...] (NONE SEEN )</content> ID Date Data Source GFR(Creatinine).[id number] 04/05/2020 01:50:00 PM EDT [facility] 0-0400 Name Value Range Interpretation Code Description Data Pretty rce(s) Supporting Document(s ) UNK > 60 <content [facility] styleCode="Bold"> Medical Cent er EGFR </content>100 GFR<content styleCode="Italic s"> (> 60 GFR)</content> ID Date Data Source Coagulation 04/05/2020 01:50:00 PM [facility] Rout.[id number] EDT Name Value Range Interpretation Description Data [...] cs"> (25.1-36.5 SEC)</content> ID Date Data Source CHMROUTINECCDA.[id number] 04/05/2020 01:50:00 PM EDT [facility] -0400 Name Value Range Interpretation [...] not available)<br/ > ID Date Data Source [facility].[id number] 04/05/2020 01:50:00 PM EDT [facility] Name Value Range Interpretation Description Data Sup porting Code Source(s) Document(s ) Sodium 137-145 <content Saint [Moles/volume] in styleCode="Bold"> [facility] Serum or Plasma Sodium Medical </content>137 Center MEQ/L<content styleCode="Italic s"> (137-145 MEQ/L)</content> Carbon dioxide, 22-30 <content Saint total styleCode="Bold"> [place] [Moles/volume] in Carbon Dioxide Medical Serum or Plasma </content>26 Center MEQ/L<content styleCode="Italic s"> (22-30 MEQ/L)</content> Chloride 98-107 <content Saint [Moles/volume] in styleCode="Bold"> [facility] Serum or Plasma Chloride Medical </content>100 Center MEQ/L<content styleCode="Italic s"> (98-107 MEQ/L)</content> Potassium 3.5-5.3 Below low <content Saint [Moles/volume] in normal styleCode="Bold"> [facility] Serum or Plasma Potassium Medical </content>3.4 Center MEQ/L L<content styleCode="Italic s"> (3.5-5.3 MEQ/L)</content> UNK 7-17 <content Saint styleCode="Bold"> [facility] BUN </content>7 Medical MG/DL<content Center styleCode="Italic s"> (7-17 MG/DL)</content> Alanine 7-30 Above high <content Saint aminotransferase normal styleCode="Bold"> Ba hs [Enzymatic Alanine Medical activity/volume] Aminotransferase Center [...] s"> (3.5-5.0 G/DL)</content> ID Date Data Source Urinalysis.[id number] 06/14/2019 03:50:00 PM EDT [facility] 0 Name Value Range Interpretation [...] by Test d">Urine Medical strip Specific Center [place] </content>1.02 0 <content styleCode="Triny lics"> (1.015-1.025 )</content> [...] MG/DL)</conten t> Urobilinogen 0.2-1.0 <content Saint [Units/volume] styleCode="oRssana Edmonds in Urine by d">Urine Medical Test strip Urobilinogen Center </content>0.2 MG/DL<content styleCode="Triny lics"> (0.2-1.0 MG/DL)</conten t> Nitrite NEGATIVE <content Saint [Presence] in styleCode="Rossana Alejandre Urine by Test d">Urine Medical strip Nitrite Center </content>NEGA TIVE <content styleCode="Triny lics"> (NEGATIVE )</content> UNK 0-3 <content Saint styleCode="Rossana Edmonds d">Urine Red Medical Blood Cell Center </content>3-5 HPF<content styleCode="Triny lics"> (0-3 HPF)</content> ID Date Data Source HematologyRou.[id number] 06/14/2019 03:50:00 PM EDT [facility] 0400 Name Value Range Interpretation [...] (0.0 KCUMM)</content > ID Date Data Source GFR(Creatinine).[id number] 06/14/2019 03:50:00 PM EDT [facility] 0-0400 Name Value Range Interpretation Code Description Data Pretty rce(s) Supporting Document(s ) UNK > 60 <content [facility] styleCode="Bold"> Medical Cent er EGFR </content>75 GFR<content styleCode="Italic s"> (> 60 GFR)</content> ID Date Data Source BMP.[id number] 06/14/2019 03:50:00 PM EDT [facility] Name Value Range Interpretation Description Data Sup [...] 01:57:00 Daily Smoker completed Daily Smoker S [facility] EDT Center Smoking 04/05/2020 01:49:00 Daily Smoker completed Daily Smoker S [facility] EDT Center Smoking 04/05/2020 12:51:00 Daily Smoker completed Daily Smoker S [facility] EDT Center Smoking 07/12/2019 09:54:00 Daily Smoker completed Daily Smoker S [facility] EDT Center Smoking 07/12/2019 09:23:00 Daily Smoker completed Daily Smoker S [facility] EDT Center Smoking 07/12/2019 09:18:00 Daily Smoker completed Daily Smoker S [facility] EDT Center Smoking 07/11/2019 07:40:00 Daily Smoker completed Daily Smoker S [facility] EDT Center Smoking 06/28/2019 11:07:00 Daily Smoker completed Daily Smoker S [facility] EDT Center Smoking 06/28/2019 11:00:00 Daily Smoker completed Daily Smoker S [facility] EDT Center Smoking 06/14/2019 03:52:00 Daily Smoker completed Daily Smoker S [facility] EDT Center Smoking 06/14/2019 03:26:00 Daily Smoker completed Daily Smoker S [facility] EDT Center Vital Signs ID Date Data Source UNK Name Value Range Interpretation Code Description Data Source(s) Body temperature 36.007780 36.920057 [facility] Respiratory rate 17 /min 17 /min [facility] Oxygen saturation 98 % 98 % [facility] by Pulse oximetry Heart rate 74 /min 74 /min [facility] Diastolic blood 81 mm[Hg] 81 mm[Hg] [facility] Systolic blood 153 mm[Hg] 153 mm[Hg] [facility] pressure [facility] Body weight 61.759414 kg 61.689904 kg [facility] Body temperature 36.252852 36.640564 [facility] Respiratory rate 18 /min 18 /min [facility] Oxygen saturation 97 % 97 % [facility] by Pulse oximetry Heart rate 87 /min 87 /min [facility] Body height 175.115558 175.886508 cm [facility] Diastolic blood 83 mm[Hg] 83 mm[Hg] [facility] pressure Medical Center Systolic blood 144 mm[Hg] 144 mm[Hg] [facility] Body mass index 20.0 kg/m2 20.0 kg/m2 [facility] (BMI) [Ratio] [facility] [address] Body weight 61.017959 kg 61.752399 kg [facility] Measured Medical Center Body temperature 36.443480 36.578587 [facility] Respiratory rate 17 /min 17 /min [facility] Oxygen saturation 98 % 98 % [facility] Arterial blood Medical Center by Pulse oximetry Heart rate 77 /min 77 /min [facility] Body height 172.665660 172.447985 cm [facility] Diastolic blood 56 mm[Hg] 56 mm[Hg] [facility] Systolic blood 111 mm[Hg] 111 mm[Hg] [facility] Body mass index 20.6 kg/m2 20.6 kg/m2 [facility] (BMI[facility] [Ratio] [facility] [address] [facility] Body temperature 37.460848 37.615912 [facility] Respiratory rate 18 /min 18 /min [facility] Oxygen saturation 98 % 98 % [facility] Arter[facility] blood Medical Center by Pulse oximetry Heart rate 78 /min 78 /min [facility] Diastolic blood 78 mm[Hg] 78 mm[Hg] [facility] pressure Medical Center Systolic blood 132 mm[Hg] 132 mm[Hg] [facility] Body weight 65.119210 kg 65.075069 kg [facility] Measured Medical Center Body temperature 36.432372 36.472067 [facility] Respiratory rate 17 /min 17 /min [facility] Oxygen saturation 96 % 96 % [facility] Arterial blood Medical Center by Pulse oximetry Heart rate 97 /min 97 /min [facility] Diastolic blood 74 mm[Hg] 74 mm[Hg] [facility] Center Systolic blood 123 mm[Hg] 123 mm[Hg] [facility] Body weight 62.441968 kg 62.536794 kg [facility] Measured [facility] Body temperature 36.539558 36.123939 [facility] Respiratory rate 17 /min 17 /min [facility] Oxygen saturation 97 % 97 % [facility] Marielena garcia in Arterial blood Medical Center by Pulse oximetry Heart rate 95 /min 95 /min [facility] Body height 172.352549 172.321745 cm [facility] cm Medical Center Diastolic blood 82 mm[Hg] 82 mm[Hg] [facility] pressure Medical Center Systolic blood 124 mm[Hg] 124 mm[Hg] [facility] pressure Medical Center Body mass index 20.9 kg/m2 20.9 kg/m2 [facility] (BMI) [Ratio] [facility] [address]
[2020-07-24] MEDS ORDERED: POTASSIUM CHLORIDE TABS 20 MEQ TABLET.ER (FP) PO ONE ×2 (13:03→14:38)
--- NOTE | 2020-07-24 13:47 | PDOC ---
History of Present Illness - General Chief Complaint: Revisit, Lab Variance Stated Complaint: ABNORMAL LABS Time Seen by Provider: 07/24/20 12:47 - History of Present Illness Initial Comments: HPI: 07/24/20 13:44 40 yo F PMH alcohol abuse (6-8 drinks per day), sent from [facility] with lab abnormalities. Has been in detox for the past two days, had labs today significant for K of 2.9 and AST of 1389. Last received Librium this morning. Ms. Frost complains of occasional numbness in tingling in b/l feet, but has no other complaints. Notes that she has been told that she had low potassium in the past. LMP 4 weeks ago, hx irregular periods. ROS: GENERAL/CONSTITUTIONAL: denies fever, chills, diaphoresis, generalized weakness, malaise, loss of appetite, weight change HEAD, EYES, EARS, NOSE AND THROAT: denies rhinorrhea, nasal congestion, throat pain, throat swelling, difficulty swallowing, mouth swelling, ear pain, eye pain, visual changes NEUROLOGIC: endorses intermittent numbness and tingling in bilateral feet. Denies headache, focal weakness, dizziness, unsteady gait, mental status garrett ges, bladder or bowel incontinence CARDIOVASCULAR: denies chest pain, syncope, palpitations, irregular heart rate, lightheadedness, peripheral edema RESPIRATORY: denies cough, shortness of breath, dyspnea with exertion, wheezing GASTROINTESTINAL: denies abdominal pain, abdominal distension, nausea, vomiting, diarrhea, constipation, melena, hematochezia GENITOURINARY: denies dysuria, frequency, urgency MUSCULOSKELETAL: denies myalgia, arthralgia, joint swelling, back pain, neck pain SKIN: denies rash, itching HEMATOLOGIC/IMMUNOLOGIC: denies easy bleeding, easy bruising, lymphadenopathy, frequent infections ENDOCRINE: denies unexplained weight gain, unexplained weight loss, heat intolerance, cold intolerance PSYCHIATRIC: denies anxiety, depression, suicidal or homicidal ideation, hallucinations PE: Gen: well-developed, well-nourished, NAD Neuro: AAOX4, CN II-XII intact, no tremor, no tongue fasciculations HEENT: atraumatic, normocephalic Neck: trachea midline, supple CV: regular rate, regular rhythm, no murmurs, rubs, or gallops Pulm: CTA b/l, no wheezing Abd: soft, non-distended, non-tender MSK: full ROM, intact pulses Extr: no edema, no deformities Skin: warm, dry MDM: Concern for alcohol abuse v hepatitis. - CIWA 0 - acute hep panel - repeat CMP - magnesium - serum preg - PT/INR - replete electrolytes as needed - admit 07/24/20 14:38 Repeat K 3.1, Mg 1.1. Will give 40 PO potassium, 2g magnesium. 07/24/20 14:44 AST 1140. Will admit for hypomagnesemia, hypokalemia, elevated LFTs. 07/24/20 14:55 EKG normal sinus at 86 bpm, RSR' in V1 and V2, T wave inversions in V2 and V3. No prior to compare. Past History - Medical History Allergies/Adverse Reactions: Allergies Allergy/AdvReac Type Severity Reaction Status Date / Time No Known Allergies Allergy Verified 07/24/20 12:52 Home Medications: Ambulatory Orders NK [No Known Home Medication] 07/23/20 Anemia: No Asthma: No Cancer: No Cardiac Disorders: No CVA: No COPD: No CHF: No Dementia: No Diabetes: No GI Disorders: No Disorders: No HTN: No Hypercholesterolemia: No Kidney Stones: No Liver Disease: No Seizures: No Thyroid Disease: No - Surgical History Abdominal Surgery: No Appendectomy: No Cardiac Surgery: No Cholecystectomy: No Lung Surgery: No Neurologic Surgery: No Orthopedic Surgery: No - Reproductive History Is Patient Now?: No PID: No - Immunization History Immunization Up to Date: No - Psycho-Social/Smoking History Smoking History: Unknown if ever smoked Have you smoked in the past 12 months: Yes Number of Cigarettes Smoked Daily: 4 Cigars Per Day: 0 'Breaking Loose' booklet given: 07/23/20 - Substance Abuse Hx (Audit-C & DAST Scrn) How often the patient has a drink containing alcohol: 4 0r more times/wk Number of drinks the patient has on a typical day: 7 to 9 Score: In Men: 4 or > Positive; In Women: 3 or > Positive: 7 Screen Result (Pos requires Nsg. Audit-10AR): Positive In the last yr the pt used illegal drug/Rx for NonMed reason: No Score: Yes response is considered Positive: 0 Screen Result (Positive result requires Nsg. DAST-10): Negative *Physical Exam - Vital Signs Last Vital Signs Temp Pulse Resp BP Pulse Ox 98.9 F 85 18 126/82 100 07/24/20 12:30 07/24/20 12:30 07/24/20 12:30 07/24/20 12:30 07/24/20 12:30 ED Treatment Course - LABORATORY CBC & Chemistry Diagram: 07/25/20 17:10 07/25/20 17:10 Discharge - Discharge Information Problems reviewed: Yes Clinical Impression/Diagnosis: Hypomagnesemia, Hypokalemia, Transaminitis - Follow up/Referral - Patient Discharge Instructions - Post Discharge Activity
[2020-07-24 13:50] LABS: BASO % 0.6 % (0-2.0); EOS % 0.5 % (0-4.5); HEMOGLOBIN 12.3 GM/dL (10.7-15.3); LYMPH % 41.9 % (8-40); MCH 35.5 pg (25.7-33.7); MCHC 34.1 g/dl (32.0-36.0); MEAN CELL VOLUME 104.1 fl (80-96); MEAN PLT VOLUME 10.6 fl (7.5-11.1); MONO % 9.3 % (3.8-10.2); NEUT % 47.7 % (42.8-82.8); PLATELET COUNT 86 K/MM3 (134-434); RBC 3.46 M/mm3 (3.60-5.2); RDW 15.7 % (11.6-15.6); WHITE BLOOD COUNT 2.7 K/mm3 (4.0-10.0)
[2020-07-24 14:02] LABS: INR 1.18 (0.83-1.09); PROTHROMBIN TIME (PATIENT) 13.9 SEC (9.7-13.0)
[2020-07-24 14:28] LABS: ALBUMIN 3.4 g/dl (3.4-5.0); BILIRUBIN,TOTAL 2.5 mg/dL (0.2-1); CALCIUM 9.3 mg/dL (8.5-10.1); CREATININE 0.8 mg/dL (0.55-1.3); MAGNESIUM 1.1 mg/dL (1.8-2.4); POTASSIUM 3.1 mmol/L (3.5-5.1); TOT PROT 7.1 g/dl (6.4-8.2)
[2020-07-24] MEDS ORDERED: MAGNESIUM SULF 50% (8.12 MEQ/2 ML-1 GM VIAL) IVPB ONE (14:37)
[2020-07-24] MEDS ORDERED: MAGNESIUM SULFATE IN WATER 2 GM/50 ML IVPB IVPB ONE (14:41)
[2020-07-24 14:45] LABS: BLOOD UREA NITROGEN 2.2 mg/dL (7-18)
--- NOTE | 2020-07-24 15:19 | PN ---
Teaching Attending Note Name of Resident: Tawny Stack ATTENDING PHYSICIAN STATEMENT I saw and evaluated the patient. I reviewed the resident's note and discussed the case with the resident. I agree with the resident's findings and plan as documented. SUBJECTIVE: Pt is a 40 yo f w/ PMH ETOH abuse brought into ED form [facility] for hypokalemia and elevted LFTs. Pt currently on day 3 of ETOH detox. Pt has no complaints other than tingling in the feet. Last Librium dose this AM. Per patient, she has been told that her potassium was low in the past. See resident note for full details. OBJECTIVE: Vital Signs Temperature 98.9 F 07/24/20 12:30 Pulse Rate 85 07/24/20 12:30 Respiratory Rate 18 07/24/20 12:30 Blood Pressure 126/82 07/24/20 12:30 O2 Sat by Pulse Oximetry (%) 100 07/24/20 12:30 CBC, BMP 07/24/20 13:37 07/24/20 13:37 PE: General: Heart: rrr, s1, s2 heard no mgr Lungs: CTA b/l Abdomen: soft, nontender, not distended, +BS Extremities: No swelling, normal coloration ASSESSMENT AND PLAN: Pt is a 40 yo f w/ PMH ETOH abuse brought into ED form [facility] for hypokalemia and elevted LFTs. Pt currently on day 3 of ETOH detox. #Hypokalemia -likely 2/2 poor PO intake and ETOH use -magnesium low as well -replete K+ and Mag, monitor daily #Transaminitis -likely 2/2 etoh use coupled w/ Librium use in detox, r/o acute hepatitis -avoid hepatotoxic agents -trend LFTs -abdominal US -acute hepatitis panel pending #ETOH detox -change librium detox protocol to ativan detox protocol -thiamine -folate -CIWA 0 -monitor CIWA
--- NOTE | 2020-07-24 15:37 | PDOC ---
Documentation entered by Nallely Drake SCRIBE, acting as scribe for Devaughn Alanis MD. Devaughn Alanis MD: This documentation has been prepared by the scribeNoelle Sydney, SCRIBE, under my direction and personally reviewed by me in its entirety. I confirm that the documentation accurately reflects all work, treatment, procedures, and medical decision making performed by me. Attending Attestation - Resident Resident Name: KirkTristanaimee - ED Attending Attestation I have performed the following: I have examined & evaluated the patient, The case was reviewed & discussed with the resident, I agree w/resident's findings & plan, Exceptions are as noted - HPI HPI: 07/24/20 13:45 Patient is a 40 year old female with a significant past medical history of alcohol abuse (6-8 drinks/day) who presents to the ED from [facility] for further evaluation secondary to abnormal lab results this morning. As per patient, she has been admitted at [facility] for the last two days and was observed to have low potassium levels and high AST levels, prompting the request for EMS. Patient endorses occasional numbness and tingling in her bilateral feet, but denies any other symptoms. Denies headache, fever, chills, shortness of breath, chest pain, abdominal pain, nausea, vomiting, diarrhea, or urinary changes. Allergies: NKDA - Physicial Exam PE: 07/24/20 13:56 GENERAL: The patient is awake, alert, and fully oriented, Nontoxic - in no acute distress. well nourished HEAD: Normocephalic, atraumatic. EYES: extraocular movements intact, sclera anicteric, conjunctiva clear. ENT: Normal voice, Moist mucous membranes. NECK: Normal range of motion, supple LUNGS: Breath sounds equal, clear to auscultation bilaterally. No wheezes, no rhonchi, no rales. HEART: Regular rate and rhythm, normal S1 and S2 without murmur, rub or gallop. ABDOMEN: Soft, nontender, No guarding, no rebound. No CVA tenderness EXTREMITIES: Normal range of motion, no edema. NEUROLOGICAL: No facial assymetry, Normal speech, atremulous PSYCH: Normal mood, normal affect. SKIN: Warm, Dry, normal turgor, 07/24/20 13:57 - Medical Decision Making 07/24/20 13:57 will ck her labs unclear cause of hypok - ?malnutrition? 07/24/20 15:31 labs reviewed noted for hypok and hypomag will replete lfts elevated will admit for further management Heart Score/ECG Review - ECG Impressions Comment:: 07/24/20 15:32 Twelve-lead EKG was performed and reviewed by me. There is normal sinus rhythm with a normal rate. rate of 86 RSR TWI in V1-V3 qt interval of 533
--- OUTSIDE RECORDS SUMMARY | 2020-07-24 15:47 | XMS ---
:1980 [facility] Providers Name Role Phone ED [...] is protected by Article 27-F of the [facility] Public Health law. If you continue you may haveaccess to information: Regarding HIV / AIDS; Provided by facilities licensed or operated by the [facility] Office of Mental Health; or Provided by the [facility] Office for People With Developmental Disabilities. If such information is present, then the following [facility] mandated warning applies: This information has been [...] law may result in a fine or mcfp sentence or both. A general authorization for the release of medical or other information is NOT sufficient authorization for further disclosure. Encounters Encounter Providers Location Date Indications Data Source(s ) Emergency Attender: [facility] ED H 04/05/2020 [facility] STAFF 12:47:00 PM EDT Medical C enter PHYSICIANAttender: - 04/05/2020 STAFF ED STAFF 08:39:00 PM EDT PHYSICIANAdmitter: [facility] ED STAFF PHYSICIAN Patient discharged. Emergency H 07/12/2019 08:57:00 AM EDT - [address] [place] [address] 12:26:00 PM EDT Patient discharged. Emergency H 07/11/2019 08:37:00 PM EDT - [address] [place] [address] 10:01:00 PM EDT Patient discharged. Emergency H 06/28/2019 10:38:00 PM EDT - [address] [place] [address] 12:53:00 AM EDT Patient discharged. Emergency H 06/14/2019 03:24:00 PM EDT - [address] [place] [address] 06:24:00 PM EDT Patient discharged. Immunizations Vaccine Date Status Description Data Source(s) Note that this vaccine 06/28/2019 completed [facility] name has changed. See 11:55:00 PM EDT Ce nter also Td (adult). It is not adsorbed. Insurance Providers Payer name Policy type Policy ID Covered Covered green party's Policy P josse / Coverage green party ID relationship to [facility] type [facility] [employer] [id number] SP [id number] P MEDICAID [id number] SP [id number] SELF PAY SP INSURANCE [employer] [id number] SP [id number] Q HMO ALETHA O [id number] [employer] Problems, Conditions, and Diagnoses Code Display [...] ical carried out due to SEEN BY [facility] EDT Center patient leaving [place] prior to [...] EDT Center Results ID Date Data Source Urinalysis.[id number] 04/05/2020 01:50:00 PM EDT [facility] 0 Name Value Range Interpretation Description [...] by Test d">Urine Medical strip Specific Center [place] </content>>= 1.030 H<content styleCode="Triny lics"> (1.015-1.025 )</content> [...] )</content> Protein NEGATIVE <content Saint [Mass/volume] styleCode="Rossana Edmonds in [...] Nitrite NEGATIVE <content Saint [Presence] in styleCode="Rossana Edmonds Urine by Test d">Urine Medical strip Nitrite [...] Data Source Liver 04/05/2020 01:50:00 PM EDT [facility] Profile.[id number] Name Value Range Interpretation Description Data Sup [...] (0.2-1.3 MG/DL)</content> UNK 0.0-0.3 <content Saint styleCode="Bold"> [facility] Bilirubin, Direct Medical </content>< 0.2 Center MG/DL<content styleCode="Italic s"> (0.0-0.3 MG/DL)</content> Albumin 3.5-5.0 <content Saint [Mass/volume] in styleCode="Bold"> Ab hs Serum or Plasma Albumin Medical </content>4.3 Center G/DL<content styleCode="Italic s"> (3.5-5.0 G/DL)</content> ID Date Data Source HematologyRou.[id number] 04/05/2020 01:50:00 PM EDT Emmanuel nt [facility] 0400 Name Value Range Interpretation Description Data Sup porting Code Source(s) Document(s ) Hemoglobin 12.3-16. Below low normal <content Saint [Mass/volume] in 0 styleCode="Bold [facility] Blood ">Hemoglobin Medical </content>10.9 Center G/DL [...] Above high <content Saint distribution 5 normal styleCode="Delia Alejandre width [Ratio] by ">Red Cell Medical Automated [...] (NONE SEEN )</content> ID Date Data Source GFR(Creatinine).[id number] 04/05/2020 01:50:00 PM EDT [facility] 0-0400 Name Value Range Interpretation Code Description Data Pretty rce(s) Supporting Document(s ) UNK > 60 <content [facility] styleCode="Bold"> Medical Cent er EGFR </content>100 GFR<content styleCode="Italic s"> (> 60 GFR)</content> ID Date Data Source Coagulation 04/05/2020 01:50:00 PM [facility] Center Rout.[id number] EDT Name Value Range Interpretation Description Data [...] cs"> (25.1-36.5 SEC)</content> ID Date Data Source CHMROUTINECCDA.[id number] 04/05/2020 01:50:[address] [facility] -0400 Name Value Range Interpretation Description Data [...] not available)<br/ > ID Date Data Source [facility].[id number] 04/05/2020 01:50:00 PM EDT [facility] Center Name Value Range Interpretation Description Data Sup porting Code Source(s) Document(s ) Sodium 137-145 <content Saint [Moles/volume] in styleCode="Bold"> [facility] Serum or Plasma Sodium Medical </content>137 Center MEQ/L<content styleCode="Italic s"> (137-145 MEQ/L)</content> Carbon dioxide, 22-30 <content Saint total styleCode="Bold"> [place] [Moles/volume] in Carbon Dioxide Medical Serum or Plasma </content>26 Center MEQ/L<content styleCode="Italic s"> (22-30 MEQ/L)</content> Chloride 98-107 <content Saint [Moles/volume] in styleCode="Bold"> [facility] Serum or Plasma Chloride Medical </content>100 Center MEQ/L<content styleCode="Italic s"> (98-107 MEQ/L)</content> Potassium 3.5-5.3 Below low <content Saint [Moles/volume] in normal styleCode="Bold"> [facility] Serum or Plasma Potassium Medical </content>3.4 Center [...] s"> (3.5-5.0 G/DL)</content> ID Date Data Source Urinalysis.[id number] 06/14/2019 03:50:00 PM EDT [facility] 0 Name Value Range Interpretation Description Data Sup porting Code Source(s) Document(s ) Color of Urine YELLOW <content Saint styleCode="[facility] Hill d">Color, Medical Urine Center </content>YELL OW <content styleCode="Triny lics"> (YELLOW )</content> UNK CLEAR <content Saint styleCode="[facility] d">Urine Medical Clarity Center </content>SPEEDY R <content [...] by Test d">Urine Medical strip Specific [facility] [place] </content>1.02 0 <content styleCode="Triny lics"> (1.015-1.025 )</content> UNK NEGATIVE <content Saint styleCode="[facility]ana Edmonds d">Urine Medical Bilirubin Center </content>NEGA TIVE <content styleCode="Triny lics"> (NEGATIVE )</content> Hemoglobin NEGATIVE <content Saint [Presence] in styleCode="Rossana Alejandre Urine by Test d">Urine Blood Medical strip </content>SMAL Center L <content styleCode="Triny lics"> (NEGATIVE )</content> Leukocyte NEGATIVE <content Saint esterase styleCode="[place]ana Edmonds [Presence] in d">Urine Medical Urine by Test Leukocyte Center strip </content>NEGA TIVE <content styleCode="Triny lics"> (NEGATIVE )</content> Protein NEGATIVE <content Saint [Mass/volume] styleCode="Rossana Edmonds in [...] (NEGATIVE )</content> UNK 0-3 <content Saint styleCode="[place] d">Urine Red Medical Blood Cell Center </content>3-5 HPF<content styleCode="Triny lics"> (0-3 HPF)</content> ID Date Data Source HematologyRou.[id number] 06/14/2019 03:50:00 PM EDT [facility] 0400 Name Value Range Interpretation Description [...] (0.0 KCUMM)</content > ID Date Data Source GFR(Creatinine).[id number] 06/14/2019 03:50:00 PM EDT [facility] 0-0400 Name Value Range Interpretation Code Description Data Pretty rce(s) Supporting Document(s ) UNK > 60 <content [facility] styleCode="Bold"> Medical Cent er EGFR </content>75 GFR<content styleCode="Italic s"> (> 60 GFR)</content> ID Date Data Source [facility].[id number] 06/14/2019 03:50:00 PM EDT [facility] Name Value Range Interpretation Description Data [...] Above high normal <content Saint [Mass/volume] styleCode="Rossana Edmonds in Serum or d">Glucose Medical Plasma </content>117 Center MG/DL H<content styleCode="Triny lics"> (74-106 MG/DL)</conten t> Creatinine 0.5-1.3 <content Saint [Mass/volume] styleCode="Rossana Edmonds in Serum or d">Creatinine Medical Plasma </content>0.9 Center MG/DL<content styleCode="Triny lics"> (0.5-1.3 MG/DL)</conten t> UNK > 60 <content Saint styleCode="[place] d">EGFR Medical </content>75 Center GFR<content styleCode="Triny lics"> (> 60 GFR)</content> Procedure Social History Code Duration Value Status Description Data Source(s ) Smoking 04/05/2020 01:57:00 Daily Smoker completed Daily Smoker S [facility] EDT Center Smoking 04/05/2020 01:49:00 Daily Smoker completed Daily Smoker S [facility] EDT Center Smoking 04/05/2020 12:51:00 Daily Smoker completed Daily Smoker S [facility] EDT Center Smoking 07/12/2019 09:54:00 Daily Smoker completed Daily Smoker S [facility] EDT Center Smoking 07/12/2019 09:23:00 Daily Smoker completed Daily Smoker S [facility] EDT Center Smoking 07/12/2019 09:18:00 Daily Smoker completed Daily Smoker S [facility] EDT Center Smoking 07/11/2019 07:40:00 Daily Smoker completed Daily Smoker S [facility] EDT Center Smoking 06/28/2019 11:07:00 Daily Smoker completed Daily Smoker S [facility] EDT Center Smoking 06/28/2019 11:00:00 Daily Smoker completed Daily Smoker S [facility] EDT Center Smoking 06/14/2019 03:52:00 Daily Smoker completed Daily Smoker S [facility] EDT Center Smoking 06/14/2019 03:26:00 Daily Smoker completed Daily Smoker S [facility] EDT Center Vital Signs ID Date Data Source UNK Name Value Range Interpretation Code Description Data Source(s) Body temperature 36.747180 36.650015 Yudy [facility] Respiratory rate 17 /min 17 /min [facility] Oxygen saturation 98 % 98 % [facility] J osephs in [facility] by Pulse oximetry Heart rate 74 /min 74 /min [facility] Diastolic blood 81 mm[Hg] 81 mm[Hg] [facility] Systolic blood 153 mm[Hg] 153 mm[Hg] [facility] pressure [facility] Center Body weight 61.685288 kg 61.411745 kg [facility] Body temperature 36.036459 36.107333 [facility] Respiratory rate 18 /min 18 /min [facility] Oxygen saturation 97 % 97 % [facility] osephs in [facility] by Pulse oximetry Heart rate 87 /min 87 /min [facility] Body height 175.792307 175.871473 cm [facility] Diastolic blood 83 mm[Hg] 83 mm[Hg] [facility] pressure Medical Center Systolic blood 144 mm[Hg] 144 mm[Hg] [facility] Body mass index 20.0 kg/m2 20.0 kg/m2 [facility] Nikko [facility] (BMI) [Ratio] Medical [facility] ter Body weight 61.060524 kg 61.202153 kg [facility] Measured Medical Center Body temperature 36.389590 36.311710 Yudy [facility] Respiratory rate 17 /min 17 /min [facility] Oxygen saturation 98 % 98 % Saint J osephs in Arterial blood Medical Center by Pulse oximetry Heart rate 77 /min 77 /min [facility] Body height 172.800075 172.925469 cm [facility] Diastolic blood 56 mm[Hg] 56 mm[Hg] [facility] Center Systolic blood 111 mm[Hg] 111 mm[Hg] [facility] Body mass index 20.6 kg/m2 20.6 kg/m2 [facility] (BMI) [Ratio] Medical [facility] ter Body temperature 37.399213 37.433592 Yudy [facility] Respiratory rate 18 /min 18 /min [facility] Oxygen saturation 98 % 98 % Saint J osephs in Arterial blood Medical Center by Pulse oximetry Heart rate 78 /min 78 /min [facility] Diastolic blood 78 mm[Hg] 78 mm[Hg] [facility] Medical Center Systolic blood 132 mm[Hg] 132 mm[Hg] [facility] Body weight 65.508401 kg 65.036860 kg [facility]asured [facility] Center Body temperature 36.355979 36.231906 Yudy [facility] Respiratory rate 17 /min 17 /min [facility] Oxygen saturation 96 % 96 % Saint J osephs in Arterial blood [facility] Center by Pulse oximetry Heart rate 97 /min 97 /min [facility] Diastolic blood 74 mm[Hg] 74 mm[Hg] [facility] Center Systolic blood 123 mm[Hg] 123 mm[Hg] [facility] Body weight 62.914381 kg 62.379469 kg [facility] Measured Medical Center Body temperature 36.153121 36.025437 Yudy [facility] Respiratory rate 17 /min 17 /min [facility] Oxygen saturation 97 % 97 % [facility] Marielena garcia in Arterial blood [facility] Center by Pulse oximetry Heart rate 95 /min 95 /min [facility] Body height 172.429732 172.105523 cm [facility] Medical Center Diastolic blood 82 mm[Hg] 82 mm[Hg] [facility] pressure Medical Center Systolic blood 124 mm[Hg] 124 mm[Hg] [facility] pressure Medical Center Body mass index 20.9 kg/m2 20.9 kg/m2 [facility] (BMI) [Ratio] Medical [place] ter
[2020-07-24 17:22] VITALS: BMI 19.5
[2020-07-24] MEDS ORDERED: POTASSIUM CHLORIDE TABS 10 MEQ TABLET.ER (FP) PO ONE (17:30)
[2020-07-24] MEDS ORDERED: LORazepam 1 MG TABLET PO PRN (17:31)
--- NOTE | 2020-07-24 17:36 | HP ---
CHIEF COMPLAINT: low potassium and magnesium PCP: none HISTORY OF PRESENT ILLNESS: 40 yo F with PMH of alcohol dependence presented from [facility] due to low potassium and low magnesium. Pt was at [facility] for alcohol detox and was found to have a 1 day history of low potassium and magnesium. Pt received librium at [facility]. Pt denied any use of PPI or tylenol. Pt denied any electrolyte abnormalities in the past. Pt denied nausea, vomiting, diarrhea, anxiety, auditory/visual hallucinations. Pt admits to numbness of her feet, but stated it has slightly improved since abstaining from alcohol. ER course was notable for: (1) 2g Magnesium sulfate (2) 40 mEq KCl (3) EKG with T wave inversions Recent Travel: denied PAST MEDICAL HISTORY: Alcohol use disorder PAST SURGICAL HISTORY: denied Social History: Smokin-3 cigarettes per day since 19 years old. Alcohol: Drinks 6-8 alcohol beverages per day. Last drink was 07/23. Drugs: marijuana Allergies No Known Allergies Allergy (Verified 07/24/20 12:52) HOME MEDICATIONS: Home Medications Medication Instructions Recorded NK [No Known Home Medication] 07/23/20 REVIEW OF SYSTEMS PHYSICAL EXAMINATION GENERAL: AAOx3, not in acute distress HEENT: NCAT, EOMI, sclera anicteric, dry mucus membranes CARDIO: RRR, S1 and S2 present, no murmurs PULM: CTA b/l ABDOMEN: soft, nondistended, nontender to palpation, normoactive bowel sounds. No hepatomegaly, no fluid wave. EXTREMITIES: warm, well-perfused. No edema SKIN: Warm, dry CIWA 0 Vital Signs - 24 hr 07/24/20 07/24/20 07/24/20 12:30 14:30 17:21 Temperature 98.9 F 98.9 F Pulse Rate 85 96 H Pulse Rate [ 95 H Apical] Respiratory 18 16 18 Rate Blood Pressure 126/82 111/73 Blood Pressure 113/82 [Left Arm] O2 Sat by Pulse 100 100 99 Oximetry (%) Laboratory Results - last 24 hr 07/24/20 07/24/20 07/24/20 13:37 13:37 13:37 WBC RBC Hgb Hct MCV MCH MCHC RDW Plt Count MPV Absolute Neuts (auto) Neutrophils % Lymphocytes % Monocytes % Eosinophils % Basophils % Nucleated RBC % PT with INR 13.90 H INR 1.18 H Sodium 136 Potassium 3.1 L Chloride 97 L Carbon Dioxide 32 Anion Gap 7 L BUN 2.2 L* Creatinine 0.8 Est GFR (CKD-EPI)AfAm 108.39 Est GFR (CKD-EPI)NonAf 93.52 Random Glucose 103 Calcium 9.3 Magnesium 1.1 L Total Bilirubin 2.5 H AST 1140 H ALT 186 H Alkaline Phosphatase 280 H Total Protein 7.1 Albumin 3.4 Serum , Qual Negative 07/24/20 13:37 WBC 2.7 L RBC 3.46 L Hgb 12.3 Hct 36.0 MCV 104.1 H MCH 35.5 H MCHC 34.1 RDW 15.7 H Plt Count 86 L MPV 10.6 Absolute Neuts (auto) 1.3 L Neutrophils % 47.7 Lymphocytes % 41.9 H Monocytes % 9.3 Eosinophils % 0.5 Basophils % 0.6 Nucleated RBC % 0 PT with INR INR Sodium Potassium Chloride Carbon Dioxide Anion Gap BUN Creatinine Est GFR (CKD-EPI)AfAm Est GFR (CKD-EPI)NonAf Random Glucose Calcium Magnesium Total Bilirubin AST ALT Alkaline Phosphatase Total Protein Albumin Serum , Qual ASSESSMENT/PLAN: 40 yo F with PMH alcohol abuse presented from [facility] with hypokalemia and elevated LFTs. Pt is admitted for Hypokalemia, hypomagnesemia and transaminitis likely secondary to alcohol dependence. Hypomagnesemia Hypokalemia -likely secondary to malnutrition and alcohol abuse -replete with KCl 40 mEq PO -c/w IVF -repeat EKG to evaluate Qtc prolongation -Repeat BMP in the morning. Replete electrolytes with goal of Mg++ of 2 and K+ of 4. Alcohol use disorder Nicotine dependence -Monitor CIWA -c/w ativan 2mg q4H PRN -c/w multivitamin, thiamine, folate and vitamin B12 -c/w nicotine patch Pancytopenia -likely in the setting of alcohol use resulting in bone marrow suppression -continue to monitor Transaminitis -likely secondary to alcohol abuse and 1x librium during detox -f/u hepatitis panel -f/u Abd US -avoid hepatotoxins if possible -trend LFTs Ppx -DVT: early ambulation FEN -NS @ 75 -monitor and replete electrolytes -Regular diet Dispo: admit to med/surg Family Medical History Family History: Denies Visit type - Emergency Visit Emergency Visit: Yes ED Registration Date: 07/24/20 Care time: The patient presented to the Emergency Department on the above date and was hospitalized for further evaluation of their emergent condition. - New Patient This patient is new to me today: Yes Date on this admission: 07/24/20 - Critical Care Critical Care patient: No ATTENDING PHYSICIAN STATEMENT I saw and evaluated the patient. I reviewed the resident's note and discussed the case with the resident. I agree with the resident's findings and plan as documented. SUBJECTIVE: OBJECTIVE: ASSESSMENT AND PLAN:
[2020-07-24] MEDS: THIAMINE HCL 100 MG TABLET (FP) PO SCH (18:45)
[2020-07-24] MEDS: MULTIVITAMINS (DAILY MVI) TABLET (FP) PO SCH (18:45)
[2020-07-24] MEDS: FOLIC ACID 1 MG TABLET (FP) PO SCH (18:46)
[2020-07-24] MEDS: SODIUM CHLORIDE 1,000 ML IV SCH (18:46)
[2020-07-24] MEDS: CYANOCOBALAMIN (VITAMIN B-12) 100 MCG TABLET PO SCH (20:05)
[2020-07-24] MEDS: NICOTINE 7 MG/24 HOURS TOPICAL PATCH TD SCH (20:09)
--- NOTE | 2020-07-24 21:43 | EKG ---
Test Reason : Blood Pressure : / mmHG Vent. Rate : 082 BPM Atrial Rate : 082 BPM P-R Int : 128 ms QRS Dur : 102 ms QT Int : 434 ms P-R-T Axes : 032 043 045 degrees QTc Int : 507 ms NORMAL SINUS RHYTHM PROLONGED QT ABNORMAL ECG WHEN COMPARED WITH ECG OF 23-JUL-2020 16:13, NO SIGNIFICANT CHANGE WAS FOUND Confirmed by Cristina Barbosa ([id number]) on 07/24/2020 9:43:39 PM Referred By: Confirmed By:Cristina Barbosa
[2020-07-25] MEDS ORDERED: PT OWN MED DRAWER 7, Y5N ONE ×4 (01:48→10:55)
--- NOTE | 2020-07-25 07:25 | PN ---
Progress Note, Physician Chief Complaint: Seen and examined on bed. Sent from [facility] for electrolyte abnormalities and transaminitis. Detox in progress. Plan to return back to [facility] when medically stable for completion of detox History of Present Illness: 40 yo F with PMH alcohol abuse presented from [facility] with hypokalemia and elevated LFTs. Pt is admitted for Hypokalemia, hypomagnesemia and transaminitis likely secondary to alcohol dependence. H - Current Medication List Current Medications: Active Medications Cyanocobalamin (Vitamin B12 -) 100 mcg PO DAILY [facility] Last Admin: 07/24/20 20:05 Dose: 100 mcg Documented by: Folic Acid (Folic Acid -) 1 mg PO DAILY [facility] Last Admin: 07/24/20 18:46 Dose: 1 mg Documented by: Sodium Chloride (Normal Saline -) 1,000 mls @ 75 mls/hr IV ASDIR [facility] Stop: 07/25/20 17:29 Last Admin: 07/24/20 18:46 Dose: 75 mls/hr Documented by: Lorazepam (Ativan -) 2 mg PO Q4H PRN PRN Reason: ANXIETY Multivitamins/Minerals/Vitamin C (Tab-A-Vit -) 1 tab PO DAILY [facility] Last Admin: 07/24/20 18:45 Dose: 1 tab Documented by: Nicotine (Nicoderm Patch -) 7 mg TD DAILY [facility] Last Admin: 07/24/20 20:09 Dose: 7 mg Documented by: Thiamine HCl (Vitamin B1 -) 100 mg PO DAILY [facility] Last Admin: 07/24/20 18:45 Dose: 100 mg Documented by: - Objective Vital Signs: Vital Signs Temperature 98.9 F 07/25/20 06:00 Pulse Rate 81 07/25/20 06:00 Respiratory Rate 16 07/25/20 06:00 Blood Pressure 115/77 07/25/20 06:00 O2 Sat by Pulse Oximetry (%) 100 07/25/20 06:00 Constitutional: Yes: Well Nourished, No Distress, Calm, Thin Eyes: Yes: WNL, Conjunctiva Clear HENT: Yes: WNL, Atraumatic, Normocephalic Neck: Yes: WNL, Supple, Trachea Midline Cardiovascular: Yes: WNL, Regular Rate and Rhythm Respiratory: Yes: WNL, Regular, CTA Bilaterally Gastrointestinal: Yes: WNL, Normal Bowel Sounds ...Rectal Exam: Yes: Deferred Genitourinary: Yes: WNL Breast(s): Yes: WNL Musculoskeletal: Yes: WNL Edema: No Peripheral Pulses WNL: Yes Peripheral Pulses: Left Radial: 2+, Right Radial: 2+, Left Doralis Pedis: 2+, Right Dorsalis Pedis: 2+, Left Femoral: 2+, Right Femoral: 2+ Integumentary: Yes: Tattoos (multiple tattos to foreams) Neurological: Yes: WNL, Alert, Oriented ...Motor Strength: WNL Psychiatric: Yes: WNL, Alert, Oriented Labs: CBC, BMP 07/24/20 13:37 07/24/20 13:37 INR, PTT INR 1.18 (0.83-1.09) H 07/24/20 13:37 - ....Imaging Ultrasound: Report Reviewed (ABD US: mild hepatomegaly, diffuse fatty liver) Problem List - Problems (1) Transaminitis Assessment/Plan: AST/ALT elevated US noted detox in progress counseled on alcohol cessation plan to return back to [facility] Code(s): R74.01 - ELEVATION OF LEVELS OF LIVER TRANSAMINASE LEVELS (2) Hypokalemia Assessment/Plan: K 3.4 c/t monitor and replete Code(s): E87.6 - HYPOKALEMIA (3) Hypomagnesemia Assessment/Plan: Mg 1.3 monitor and replete Code(s): E83.42 - HYPOMAGNESEMIA (4) Prophylactic measure Assessment/Plan: FEN Fluids: adequate PO intake Electrolytes: monitor & replete as needed Nutrition: reg diet DVT low risk Dispo Maintain as inpatient full code discharge planning back to [facility] Code(s): Z29.9 - ENCOUNTER FOR PROPHYLACTIC MEASURES, UNSPECIFIED (5) COVID-19 ruled out Assessment/Plan: negative pcr Code(s): Z03.818 - ENCNTR FOR OBS FOR SUSP EXPSR TO OTH BIOLG AGENTS RULED OUT (6) Alcohol dependence with uncomplicated withdrawal Assessment/Plan: sent from [facility] was on librium detox changed to ativan given tranaminitis c/w thiamine, MVI, folate Code(s): F10.230 - ALCOHOL DEPENDENCE WITH WITHDRAWAL, UNCOMPLICATED (7) Abnormal EKG Assessment/Plan: EKG with T wave inversions repeat in am Code(s): R94.31 - ABNORMAL ELECTROCARDIOGRAM [ECG] [EKG] (8) Pancytopenia Assessment/Plan: likely in the setting of alcohol use c/t monitor Code(s): D61.818 - OTHER PANCYTOPENIA (9) Nicotine dependence Assessment/Plan: c/w nicotine patch counseled on cessation Code(s): F17.200 - NICOTINE DEPENDENCE, UNSPECIFIED, UNCOMPLICATED Visit type - Emergency Visit Emergency Visit: Yes ED Registration Date: 07/24/20 Care time: The patient presented to the Emergency Department on the above date and was hospitalized for further evaluation of their emergent condition. - New Patient This patient is new to me today: Yes Date on this admission: 07/25/20 - Critical Care Critical Care patient: No - Discharge Referral Referred to [facility] No
[2020-07-25 07:59] LABS: BASO % 0.6 % (0-2.0); EOS % 1.4 % (0-4.5); HEMATOCRIT 35.2 % (32.4-45.2); HEMOGLOBIN 11.8 GM/dL (10.7-15.3); LYMPH % 42.8 % (8-40); MCH 34.9 pg (25.7-33.7); MCHC 33.5 g/dl (32.0-36.0); MEAN CELL VOLUME 104.2 fl (80-96); MEAN PLT VOLUME 10.7 fl (7.5-11.1); MONO % 7.7 % (3.8-10.2); NEUT % 47.5 % (42.8-82.8); PLATELET COUNT 81 K/MM3 (134-434); RBC 3.38 M/mm3 (3.60-5.2); RDW 15.9 % (11.6-15.6); WHITE BLOOD COUNT 3.1 K/mm3 (4.0-10.0)
[2020-07-25] MEDS ORDERED: LORazepam 1 MG TABLET PO PRN ×2 (08:00→08:03)
[2020-07-25 08:24] LABS: CREATININE 0.6 mg/dL (0.55-1.3)
[2020-07-25 08:25] LABS: BILIRUBIN,TOTAL 2.2 mg/dL (0.2-1); CALCIUM 8.4 mg/dL (8.5-10.1); MAGNESIUM 1.4 mg/dL (1.8-2.4); PHOSPHOROUS 1.9 mg/dL (2.5-4.9); POTASSIUM 3.4 mmol/L (3.5-5.1); TOT PROT 6.3 g/dl (6.4-8.2)
[2020-07-25] MEDS ORDERED: POTASSIUM CHLORIDE TABS 20 MEQ TABLET.ER (FP) PO ONE (08:32)
[2020-07-25] MEDS ORDERED: MAGNESIUM SULFATE IN WATER 2 GM/50 ML IVPB IVPB ONE (08:32)
[2020-07-25 08:54] LABS: BLOOD UREA NITROGEN 2.6 mg/dL (7-18)
[2020-07-25] MEDS: NICOTINE 7 MG/24 HOURS TOPICAL PATCH TD SCH (10:05)
[2020-07-25] MEDS: SODIUM CHLORIDE 1,000 ML IV SCH (10:44)
[2020-07-25] MEDS: MULTIVITAMINS (DAILY MVI) TABLET (FP) PO SCH (10:45)
[2020-07-25] MEDS: THIAMINE HCL 100 MG TABLET (FP) PO SCH (10:45)
[2020-07-25] MEDS: FOLIC ACID 1 MG TABLET (FP) PO SCH (10:45)
[2020-07-25] MEDS: CYANOCOBALAMIN (VITAMIN B-12) 100 MCG TABLET PO SCH (10:56)
[2020-07-25] MEDS: LORazepam 1 MG TABLET PO SCH ×4 (10:57→23:07)
[2020-07-25] MEDS ORDERED: LORazepam 2 MG TABLET PO SCH (11:00)
--- NOTE | 2020-07-25 15:22 | PN ---
Problem List - Problems (1) Transaminitis Code(s): R74.01 - ELEVATION OF LEVELS OF LIVER TRANSAMINASE LEVELS (2) Hypokalemia Code(s): E87.6 - HYPOKALEMIA (3) Hypomagnesemia Code(s): E83.42 - HYPOMAGNESEMIA (4) Prophylactic measure Code(s): Z29.9 - ENCOUNTER FOR PROPHYLACTIC MEASURES, UNSPECIFIED (5) COVID-19 ruled out Code(s): Z03.818 - ENCNTR FOR OBS FOR SUSP EXPSR TO OTH BIOLG AGENTS RULED OUT (6) Alcohol dependence with uncomplicated withdrawal Code(s): F10.230 - ALCOHOL DEPENDENCE WITH WITHDRAWAL, UNCOMPLICATED (7) Abnormal EKG Code(s): R94.31 - ABNORMAL ELECTROCARDIOGRAM [ECG] [EKG] (8) Pancytopenia Code(s): D61.818 - OTHER PANCYTOPENIA (9) Nicotine dependence Code(s): F17.200 - NICOTINE DEPENDENCE, UNSPECIFIED, UNCOMPLICATED
[2020-07-25 17:41] LABS: BASO % 0.6 % (0-2.0); EOS % 0.7 % (0-4.5); HEMATOCRIT 39.8 % (32.4-45.2); HEMOGLOBIN 13.6 GM/dL (10.7-15.3); MCH 35.9 pg (25.7-33.7); MCHC 34.1 g/dl (32.0-36.0); MEAN CELL VOLUME 105.3 fl (80-96); MEAN PLT VOLUME 10.1 fl (7.5-11.1); MONO % 6.4 % (3.8-10.2); NEUT % 56.3 % (42.8-82.8); RBC 3.78 M/mm3 (3.60-5.2)
[2020-07-25 18:16] LABS: ALBUMIN 3.5 g/dl (3.4-5.0); BILIRUBIN,TOTAL 2.9 mg/dL (0.2-1); CALCIUM 9.3 mg/dL (8.5-10.1); CREATININE 0.7 mg/dL (0.55-1.3); POTASSIUM 4.7 mmol/L (3.5-5.1); TOT PROT 7.3 g/dl (6.4-8.2)
[2020-07-25 19:00] LABS: ANISOCYTOSIS 1+; PLATELET COUNT 77 K/MM3 (134-434); PLATELET ESTIMATE DECREASED
[2020-07-25] MEDS ORDERED: MELATONIN 5 MG TABLETS PO ONE (22:54)
[2020-07-26 02:44] LABS: PH,URINE 8.5 (5.0-8.0); URINE APPEARANCE CLEAR; URINE BILIRUBIN NEGATIVE (NEGATIVE); URINE COLOR YELLOW; URINE GLUCOSE (UA) NEGATIVE (NEGATIVE); URINE KETONE NEGATIVE (NEGATIVE); URINE LEUK ESTERASE NEGATIVE (NEGATIVE); URINE NITRITE NEGATIVE (NEGATIVE); URINE PROTEIN NEGATIVE (NEGATIVE)
[2020-07-26] MEDS: LORazepam 0.5 MG TABLET PO SCH ×4 (05:58→22:54)
[2020-07-26 10:31] LABS: BASO % 1.2 % (0-2.0); HEMATOCRIT 38.6 % (32.4-45.2); HEMOGLOBIN 12.9 GM/dL (10.7-15.3); MCH 34.9 pg (25.7-33.7); MCHC 33.4 g/dl (32.0-36.0); MEAN CELL VOLUME 104.4 fl (80-96); MEAN PLT VOLUME 10.7 fl (7.5-11.1); MONO % 7.5 % (3.8-10.2); NEUT % 52.3 % (42.8-82.8); PLATELET COUNT 76 K/MM3 (134-434); RDW 15.8 % (11.6-15.6); WHITE BLOOD COUNT 3.6 K/mm3 (4.0-10.0)
[2020-07-26 10:38] LABS: ALBUMIN 3.4 g/dl (3.4-5.0); BILIRUBIN,TOTAL 2.1 mg/dL (0.2-1); CALCIUM 9.2 mg/dL (8.5-10.1); CREATININE 0.6 mg/dL (0.55-1.3); MAGNESIUM 1.4 mg/dL (1.8-2.4); POTASSIUM 3.8 mmol/L (3.5-5.1); TOT PROT 7.1 g/dl (6.4-8.2)
[2020-07-26 10:53] LABS: BLOOD UREA NITROGEN 2.3 mg/dL (7-18)
[2020-07-26] MEDS ORDERED: MAGNESIUM OXIDE 400 MG TABLET (FP) PO ONE (11:04)
[2020-07-26] MEDS: THIAMINE HCL 100 MG TABLET (FP) PO SCH (11:13)
[2020-07-26] MEDS: MULTIVITAMINS (DAILY MVI) TABLET (FP) PO SCH (11:13)
[2020-07-26] MEDS: FOLIC ACID 1 MG TABLET (FP) PO SCH (11:14)
[2020-07-26] MEDS: NICOTINE 7 MG/24 HOURS TOPICAL PATCH TD SCH (11:15)
[2020-07-26] MEDS ORDERED: PT OWN MED DRAWER 7, Y5N ONE (11:19)
[2020-07-26] MEDS: CYANOCOBALAMIN (VITAMIN B-12) 100 MCG TABLET PO SCH (11:20)
--- NOTE | 2020-07-26 14:03 | PN ---
Physical Exam: SUBJECTIVE: Patient seen and examined at the bedside. In no acute distress. Wants to go back home to her son who is 10 years old. I recommended that she check on her son and to consider staying and complete detox. Detox and getting clean will help both her and her son in the long run. She is refusing to go back to [facility] and would benefit from AA if she is willing. She has decided to stay until tomorrow and not sign out AMA. Risks of leaving AMA discussed with her at length: withdrawal symptoms, like seizures. She has shown me that she has capacity to make her own medical decisions. complete abstinence of alcohol discussed with her. OBJECTIVE: Patient is a 40 year old female with a significant past medical history of with [facility] alcohol abuse presented from [facility] with hypokalemia and elevated LFTs. Pt is admitted for Hypokalemia, hypomagnesemia and transaminitis likely secondary to alcohol dependence. hypokalemia, hypomagesium resolved. LFTs trending down. Vital Signs Period Temp Pulse Resp BP Sys/Gan Pulse Ox Last 24 Hr 98.2 F-99.7 F 76-94 18-18 113-115/82-90 100-100 GENERAL: The patient is awake, alert, and fully oriented, in no acute distress. crying over having to complete detox and not being with her son. HEAD: Normal with no signs of trauma. EYES: PERRL, extraocular movements intact, sclera anicteric, conjunctiva clear. No ptosis. ENT: Ears normal, nares patent, oropharynx clear without exudates NECK: Trachea midline, full range of motion, supple. LUNGS: Breath sounds equal, clear to auscultation bilaterally, no wheezes HEART: Regular rate and rhythm ABDOMEN: Soft, nontender, nondistended, normoactive bowel sounds EXTREMITIES: no edema. NEUROLOGICAL: Normal speech, gait not observed. PSYCH: anxious SKIN: Warm, dry, normal turgor, no rashes or lesions noted Laboratory Results - last 24 hr 07/24/20 07/25/20 07/25/20 13:37 17:10 17:10 WBC 4.0 RBC 3.78 Hgb 13.6 Hct 39.8 MCV 105.3 H MCH 35.9 H MCHC 34.1 RDW 16.0 H Plt Count 77 L MPV 10.1 Absolute Neuts (auto) 2.2 Neutrophils % 56.3 Lymphocytes % 36.0 Monocytes % 6.4 Eosinophils % 0.7 Basophils % 0.6 Nucleated RBC % 0 Platelet Estimate Decreased Platelet Comment No clumping noted Polychromasia 1+ Anisocytosis 1+ Microcytosis 1+ Sodium 139 Potassium 4.7 Chloride 106 Carbon Dioxide 28 Anion Gap 5 L BUN 2.0 L* Creatinine 0.7 Est GFR (CKD-EPI)AfAm 127.39 Est GFR (CKD-EPI)NonAf 109.91 Random Glucose 122 H Calcium 9.3 Magnesium 2.0 Total Bilirubin 2.9 H AST 388 H ALT 144 H Alkaline Phosphatase 281 H Total Protein 7.3 Albumin 3.5 Urine Color Urine Appearance Urine pH Ur Specific [place] Urine Protein Urine Glucose (UA) Urine Ketones Urine Blood Urine Nitrite Urine Bilirubin Urine Urobilinogen Ur Leukocyte Esterase Hepatitis C Ab (EIA) <0.1 07/26/20 07/26/20 07/26/20 00:30 08:46 08:46 WBC 3.6 L RBC 3.70 Hgb 12.9 Hct 38.6 MCV 104.4 H MCH 34.9 H MCHC 33.4 RDW 15.8 H Plt Count 76 L MPV 10.7 Absolute Neuts (auto) 1.9 Neutrophils % 52.3 Lymphocytes % 38.0 Monocytes % 7.5 Eosinophils % 1.0 Basophils % 1.2 Nucleated RBC % 0 Platelet Estimate Platelet Comment Polychromasia Anisocytosis Microcytosis Sodium 138 Potassium 3.8 Chloride 104 Carbon Dioxide 25 Anion Gap 8 BUN 2.3 L* Creatinine 0.6 Est GFR (CKD-EPI)AfAm 134.01 Est GFR (CKD-EPI)NonAf 115.63 Random Glucose 89 Calcium 9.2 Magnesium 1.4 L Total Bilirubin 2.1 H AST 270 H ALT 114 H Alkaline Phosphatase 253 H Total Protein 7.1 Albumin 3.4 Urine Color Yellow Urine Appearance Clear Urine pH 8.5 H Ur Specific [place] 1.009 L Urine Protein Negative Urine Glucose (UA) Negative Urine Ketones Negative Urine Blood Negative Urine Nitrite Negative Urine Bilirubin Negative Urine Urobilinogen 1.0 Ur Leukocyte Esterase Negative Hepatitis C Ab (EIA) Active Medications Generic Name Dose Route Start Last Admin Trade Name Freq PRN Reason Stop Dose Admin Cyanocobalamin 100 mcg 07/24/20 17:45 07/26/20 11:20 Vitamin B12 - PO 100 mcg DAILY KG Administration Folic Acid 1 mg 07/24/20 17:45 07/26/20 11:14 Folic Acid - PO 1 mg DAILY KG Administration Lorazepam 1 mg 07/25/20 08:03 Ativan - PO 07/27/20 23:59 Q4H PRN Symptoms of Withdrawal Lorazepam 0.5 mg 07/26/20 05:00 07/26/20 11:14 Ativan - PO 07/26/20 23:01 0.5 mg Q6H KG Administration Lorazepam 0.5 mg 07/27/20 00:00 Ativan - PO 07/29/20 00:00 Q4H PRN Symptoms of Withdrawal Lorazepam 0.5 mg 07/27/20 05:00 Ativan - PO 07/27/20 05:01 ONCE ONE Multivitamins/Minerals/Vitamin C 1 tab 07/24/20 17:45 07/26/20 11:13 Tab-A-Vit - PO 1 tab DAILY KG Administration Nicotine 7 mg 07/24/20 17:45 07/26/20 11:15 Nicoderm Patch - TD 7 mg DAILY KG Administration Thiamine HCl 100 mg 07/24/20 17:45 07/26/20 11:13 Vitamin B1 - PO 100 mg DAILY KG Administration ASSESSMENT/PLAN: Problem List - Problems (1) Abnormal EKG Assessment/Plan: repeat in a.m. no chest pain or shortness of breath. Code(s): R94.31 - ABNORMAL ELECTROCARDIOGRAM [ECG] [EKG] (2) Hypokalemia Assessment/Plan: resolved Code(s): E87.6 - HYPOKALEMIA (3) Hypomagnesemia Assessment/Plan: resolved Code(s): E83.42 - HYPOMAGNESEMIA (4) Pancytopenia Assessment/Plan: monitor in the abstinence of alcohol Code(s): D61.818 - OTHER PANCYTOPENIA (5) Prophylactic measure Code(s): Z29.9 - ENCOUNTER FOR PROPHYLACTIC MEASURES, UNSPECIFIED (6) Transaminitis Assessment/Plan: trending down, daily monitoring. Code(s): R74.01 - ELEVATION OF LEVELS OF LIVER TRANSAMINASE LEVELS (7) Alcohol dependence with uncomplicated intoxication Assessment/Plan: will complete ativan taper tomorrow, refusing to go back to [facility] Code(s): F10.220 - ALCOHOL DEPENDENCE WITH INTOXICATION, UNCOMPLICATED Visit type - Emergency Visit Emergency Visit: Yes ED Registration Date: 07/24/20 Care time: The patient presented to the Emergency Department on the above date and was hospitalized for further evaluation of their emergent condition. - New Patient This patient is new to me today: Yes Date on this admission: 07/26/20 - Critical Care Critical Care patient: No - Discharge Referral Referred to [facility] Med P.C[facility] No KATHY Nausea/Vomitin-No Nausea/No Vomiting Muscle Tremors: None Anxiety: 4-Mod. Anxious/Guarded Agitation: 0-Normal Activity Paroxysmal Sweats: No Perspiration Orientation: 0-Oriented Tacttile Disturbances: 0-None Auditory Disturbances: 0-None Visual Disturbances: 0-None Headache: 0-None Present CIWA-Ar Total Score: 4
[2020-07-26 20:08] LABS: HEP B CORE AB, TOT Negative (Negative)
[2020-07-27] MEDS ORDERED: LORazepam 0.5 MG TABLET PO PRN
[2020-07-27] MEDS ORDERED: LORazepam 1 MG TABLET PO SCH (05:00)
[2020-07-27] MEDS ORDERED: LORazepam 0.5 MG TABLET PO ONE (05:00)
[2020-07-27 07:21] VITALS: BP 121/82; PULSE 98; TEMP 98.1
[2020-07-27 09:13] LABS: BASO % 0.6 % (0-2.0); EOS % 0.8 % (0-4.5); HEMATOCRIT 38.5 % (32.4-45.2); HEMOGLOBIN 12.9 GM/dL (10.7-15.3); LYMPH % 29.1 % (8-40); MCH 35.1 pg (25.7-33.7); MCHC 33.5 g/dl (32.0-36.0); MEAN CELL VOLUME 104.7 fl (80-96); MONO % 8.3 % (3.8-10.2); NEUT % 61.2 % (42.8-82.8); RBC 3.68 M/mm3 (3.60-5.2); RDW 16.3 % (11.6-15.6); WHITE BLOOD COUNT 4.4 K/mm3 (4.0-10.0)
[2020-07-27 09:35] LABS: ALBUMIN 3.4 g/dl (3.4-5.0); BILIRUBIN,TOTAL 1.9 mg/dL (0.2-1); BLOOD UREA NITROGEN 3.7 mg/dL (7-18); CALCIUM 9.4 mg/dL (8.5-10.1); CREATININE 0.7 mg/dL (0.55-1.3); MAGNESIUM 1.7 mg/dL (1.8-2.4); POTASSIUM 4.2 mmol/L (3.5-5.1); TOT PROT 7.5 g/dl (6.4-8.2)
--- NOTE | 2020-07-27 09:53 | EKG ---
Test Reason : Blood Pressure : / mmHG Vent. Rate : 086 BPM Atrial Rate : 086 BPM P-R Int : 130 ms QRS Dur : 096 ms QT Int : 446 ms P-R-T Axes : 041 038 043 degrees QTc Int : 533 ms NORMAL SINUS RHYTHM RSR' OR QR PATTERN IN V1 SUGGESTS RIGHT VENTRICULAR CONDUCTION DELAY T WAVE ABNORMALITY, CONSIDER ANTERIOR ISCHEMIA PROLONGED QT ABNORMAL ECG WHEN COMPARED WITH ECG OF 24-JUL-2020 12:44, NO SIGNIFICANT CHANGE WAS FOUND Confirmed by MD Erik, Eugenio ([id number]) on 07/27/2020 9:52:53 AM Referred By: Confirmed By:Eugenio Valencia MD
--- NOTE | 2020-07-27 09:54 | DS ---
Physical Exam: SUBJECTIVE: Patient seen and examined Patient wants to go home and follow up with her PCP to monitor her liver enzymes. She tells me she has a PCP but will call [facility] to make an appointment. She states she will no longer drink alcohol and focus on her son and other responsibilities. She has been referred to [facility] ([facility] alcohol) for management of ETOH abuse. No signs of withdrawal on exam and she is stable for discharge home so long as she follows up and monitors her liver enzymes which is is agreeing to do. OBJECTIVE: Patient is a 40 year old female with a significant past medical history of with [facility] alcohol abuse presented from [facility] with hypokalemia and elevated LFTs. Pt is admitted for Hypokalemia, hypomagnesemia and transaminitis likely secondary to alcohol dependence. Vital Signs Period Temp Pulse Resp BP Sys/Gan Pulse Ox Last 24 Hr 98.1 F-98.9 F 81-98 18-20 104-121/71-82 100-100 PHYSICAL EXAM GENERAL: The patient is awake, alert, and fully oriented, in no acute distress. HEAD: Normal with no signs of trauma. EYES: PERRL, extraocular movements intact, sclera anicteric, conjunctiva clear. No ptosis. ENT: Ears normal, nares patent, oropharynx clear without exudates NECK: Trachea midline, full range of motion, supple. LUNGS: Breath sounds equal, clear to auscultation bilaterally, no wheezes HEART: Regular rate and rhythm ABDOMEN: Soft, nontender, nondistended, normoactive bowel sounds EXTREMITIES: no edema. NEUROLOGICAL: Normal speech, gait not observed. PSYCH: anxious SKIN: Warm, dry, normal turgor, no rashes or lesions noted LABS Laboratory Results - last 24 hr 07/24/20 07/26/20 07/26/20 13:37 08:46 08:46 WBC 3.6 L RBC 3.70 Hgb 12.9 Hct 38.6 MCV 104.4 H MCH 34.9 H MCHC 33.4 RDW 15.8 H Plt Count 76 L MPV 10.7 Absolute Neuts (auto) 1.9 Neutrophils % 52.3 Lymphocytes % 38.0 Monocytes % 7.5 Eosinophils % 1.0 Basophils % 1.2 Nucleated RBC % 0 Sodium 138 Potassium 3.8 Chloride 104 Carbon Dioxide 25 Anion Gap 8 BUN 2.3 L* Creatinine 0.6 Est GFR (CKD-EPI)AfAm 134.01 Est GFR (CKD-EPI)NonAf 115.63 Random Glucose 89 Calcium 9.2 Magnesium 1.4 L Total Bilirubin 2.1 H AST 270 H ALT 114 H Alkaline Phosphatase 253 H Total Protein 7.1 Albumin 3.4 Hep A IgM Ab Confirm Negative Hepatitis A Ab Total Positive H Hep Bs Antigen Negative Hep Bs Antibody Reactive Hep B Core Total Ab Negative Hep B Core IgM Ab Negative Hepatitis Be Antibody Negative Hepatitis Be Antigen Negative Hepatitis C Ab (EIA) <0.1 07/27/20 07/27/20 07:39 07:39 WBC 4.4 RBC 3.68 Hgb 12.9 Hct 38.5 MCV 104.7 H MCH 35.1 H MCHC 33.5 RDW 16.3 H Plt Count No Result Required. MPV Absolute Neuts (auto) 2.7 Neutrophils % 61.2 Lymphocytes % 29.1 D Monocytes % 8.3 Eosinophils % 0.8 Basophils % 0.6 Nucleated RBC % 0 Sodium 133 L Potassium 4.2 Chloride 99 Carbon Dioxide 27 Anion Gap 7 L BUN 3.7 L Creatinine 0.7 Est GFR (CKD-EPI)AfAm 127.39 Est GFR (CKD-EPI)NonAf 109.91 Random Glucose 91 Calcium 9.4 Magnesium 1.7 L Total Bilirubin 1.9 H AST 325 H ALT 113 H Alkaline Phosphatase 255 H Total Protein 7.5 Albumin 3.4 Hep A IgM Ab Confirm Hepatitis A Ab Total Hep Bs Antigen Hep Bs Antibody Hep B Core Total Ab Hep B Core IgM Ab Hepatitis Be Antibody Hepatitis Be Antigen Hepatitis C Ab (EIA) HOSPITAL COURSE: Date of Admission:07/24/20 Date of Discharge: 07/27/20 Minutes to complete discharge: 45 Discharge Summary Problems reviewed: Yes Reason For Visit: ELEVATED LIVER FUNCTION RESTS;HYPOKALEMIA; Current Active Problems Abnormal EKG (Acute) COVID-19 ruled out (Acute) Hypokalemia (Acute) Hypomagnesemia (Acute) Pancytopenia (Acute) Prophylactic measure (Acute) Transaminitis (Acute) Condition: Improved - Instructions Diet, Activity, Other Instructions: Mrs Santiago: You were admitted to [facility] on 07/24/2020 for elevated liver enzymes, low magnesium levels in your blood and low potassium levels in your blood. You liver enzymes have improved but they will still need to be monitored closely. The gómez is complete cessation of alcohol. We have referred you to a [facility] who can closely monitor your liver enzymes. You tell me you have a primary care doctor in the [place] that can monitor your blood work. If you cannot find a primary care doctor we have referred you to a primary care doctor affiliated with [facility]. They are located at [address] [place] [address] and we have sent in a referral for you ([facility]) Your magnesium levels are still on the lower side and we will be sending you home with supplements to help you keep those levels normal. You potassium levels are now normal. FOLLOW UPS: Please follow up with your primary care doctor at [facility] Please follow up with the [facility] that we have sent a referral to. Please have have your liver enzymes and magnesium levels repeated to assure that they are stable. Thank you for allowing us to care for you. Referrals: Rodolfo Bach MD [Staff Physician] - [facility] [Provider Group] Disposition: HOME - Home Medications Comprehensive Discharge Medication List: Ambulatory Orders Folic Acid - 1 mg PO DAILY #60 tablet 07/27/20 Magnesium Oxide [Magnesium] 400 mg PO DAILY #60 capsule 07/27/20 Thiamine HCl [Vitamin B1 -] 100 mg PO DAILY #60 tablet 07/27/20 Problem List - Problems (1) Abnormal EKG Assessment/Plan: no chest pain or shortness of breath. no significant changes noted. magnesium supplemented. Code(s): R94.31 - ABNORMAL ELECTROCARDIOGRAM [ECG] [EKG] (2) Hypokalemia Assessment/Plan: resolved Code(s): E87.6 - HYPOKALEMIA (3) Hypomagnesemia Assessment/Plan: will send on supplements daily Code(s): E83.42 - HYPOMAGNESEMIA (4) Pancytopenia Assessment/Plan: monitor in the abstinence of alcohol Code(s): D61.818 - OTHER PANCYTOPENIA (5) Prophylactic measure Code(s): Z29.9 - ENCOUNTER FOR PROPHYLACTIC MEASURES, UNSPECIFIED (6) Transaminitis Assessment/Plan: trending down and patient agrees to follow up with her PCP to monitor closely. Code(s): R74.01 - ELEVATION OF LEVELS OF LIVER TRANSAMINASE LEVELS (7) Alcohol dependence with uncomplicated intoxication Assessment/Plan: completed ativan protocol no signs of withdrawal Code(s): F10.220 - ALCOHOL DEPENDENCE WITH INTOXICATION, UNCOMPLICATED This patient is new to me today: No Emergency Visit: Yes ED Registration Date: 07/24/20 Care time: The patient presented to the Emergency Department on the above date and was hospitalized for further evaluation of their emergent condition. Critical Care patient: No - Discharge Referral Referred to [facility] Med P.C.: No CIWA Score Nausea/Vomitin-No Nausea/No Vomiting Muscle Tremors: None Anxiety: 0-No Anxiety, at Ease Agitation: 0-Normal Activity Paroxysmal Sweats: No Perspiration Orientation: 0-Oriented Tacttile Disturbances: 0-None Auditory Disturbances: 0-None Visual Disturbances: 0-None Headache: 0-None Present CIWA-Ar Total Score: 0 - Admission Criteria OASAS Guidelines: Admission for Medically Managed Detox: Requires at least one of the followin. CIWA greater than 12 2. Seizures within the past 24 hours 3. Delirium tremens within the past 24 hours 4. Hallucinations within the past 24 hours 5. Acute intervention needed for co occurring medical disorder 6. Acute intervention needed for co occurring psychiatric disorder 7. Severe withdrawal that cannot be handled at a lower level of care (continued vomiting, continued diarrhea, abnormal vital signs) requiring intravenous medication and/or fluids 8.
[2020-07-27] MEDS ORDERED: MAGNESIUM OXIDE 400 MG TABLET (FP) PO ONE (10:00)
[2020-07-27] MEDS: FOLIC ACID 1 MG TABLET (FP) PO SCH (10:19)
[2020-07-27] MEDS: THIAMINE HCL 100 MG TABLET (FP) PO SCH (10:19)
[2020-07-27] MEDS: NICOTINE 7 MG/24 HOURS TOPICAL PATCH TD SCH (10:19)
[2020-07-27] MEDS: MULTIVITAMINS (DAILY MVI) TABLET (FP) PO SCH (10:19)
[2020-07-27 11:34] LABS: PLATELET ESTIMATE DECREASED
[2020-07-28] MEDS ORDERED: LORazepam 0.5 MG TABLET PO PRN
[2020-07-28] MEDS ORDERED: LORazepam 0.5 MG TABLET PO SCH (05:00)
[2020-07-29] MEDS ORDERED: LORazepam 0.5 MG TABLET PO ONE (05:00)
== END 2020-07-27 10:36 | disposition home or self-care (01) | DRG 425 ==
LOC: JER 12:25 → JERBED 14:39 → J5S 16:38
PROVIDERS: ADMIT Internal Medicine; ATTEND Nurse Practitioner Family
DX: E87.6 Hypokalemia (principal); E83.42 Hypomagnesemia; E46 Unspecified protein-calorie malnutrition; D61.818 Other pancytopenia; R74.01 Elevation of levels of liver transaminase levels; F10.20 Alcohol dependence, uncomplicated; F17.210 Nicotine dependence, cigarettes, uncomplicated; F10.230 Alcohol dependence with withdrawal, uncomplicated; R94.31 Abnormal electrocardiogram [ECG] [EKG]; F10.220 Alcohol dependence with intoxication, uncomplicated
CPT/HCPCS: 36415; 76705-TC; 80053; 80074; 81003; 83735; 84100; 84703; 85025; 85610; 86704; 86706; 86707; 86708; 86709; 87086; 87186; 87340; 93005; 93010; 97116-GP; 97161-GP; 99285-25

== ENCOUNTER 2023-01-18 20:31 | Emergency (ER) | payer OTHER ==
[2023-01-18 20:35] VITALS: BP 121/85; PULSE 84; RESP 17; TEMP 98; BMI 19.9
[2023-01-18] MEDS ORDERED: DIPHTH,PERTUSS(ACELL),TET 0.5 ML DISP.SYRIN IM ONE ×2 (23:22→23:40)
[2023-01-18] MEDS ORDERED: CEPHALEXIN MONOHYDRATE 500 MG CAPSULE (UD) PO ONE (23:35)
[2023-01-18] MEDS ORDERED: CEPHALEXIN MONOHYDRATE 500 MG CAPSULE (UD) ONE (23:40)
== END 2023-01-19 00:01 | disposition home or self-care (01) ==
LOC: JER 20:31
PROC: 3E0234Z Introduction of Serum, Toxoid and Vaccine into Muscle, Percutaneous Approach (ICD-10-PCS; principal; 2023-01-18)
DX: S01.81XA Laceration without foreign body of other part of head, initial encounter (principal); Y99.9 Unspecified external cause status
CPT/HCPCS: 90471; 90715; 99283-25